=== PATIENT | female | born 1960 | race Caucasian/White ===

== ENCOUNTER 2017-01-23 16:50 | Emergency (ER) | payer MEDICAID, OTHER ==
[2017-01-23 16:57] VITALS: BP 142/79; PULSE 85; O2SAT 95
--- NOTE | 2017-01-23 17:13 | ERPHSYRPT ---
- History of Present Illness Time Seen by Provider: 01/23/17 17:08 Source: patient Exam Limitations: no limitations Patient Subjective Stated Complaint: mouth blisters for 1 week Triage Nursing Assessment: mouth blisters for 1 week. states normally uses nystatin for this but still not helping for 2 days. blisteres noted to gum line. slight sore throat. Physician History: 56-year-old white female with history of congenital heart disease, high blood pressure, COPD rheumatoid arthritis, cardiomyopathy Arrives with complaints of sores in her mouth which are like blisters on her tongue and the lower lip symptoms for a week. She states she has tried using nystatin today without any relief. No fevers she has had a slight sore throat. No vomiting no diarrhea. Past medical history includes congenital heart disease high blood pressure COPD rheumatoid arthritis cardiomyopathy. Past surgical history includes cholecystectomy hysterectomy right hip surgery. Timing/Duration: week(s) (1 week) Severity: moderate Modifying Factors: Improves With: nothing Associated Symptoms: other (sores in her mouth and on her tongue), No nausea, No vomiting, No abdominal pain, No shortness of breath, No heartburn, No diaphoresis, No cough, No chills, No chest pain, No fever, No headaches, No loss of appetite, No malaise, No rash, No syncope, No seizure, No weakness Allergies/Adverse Reactions: amoxicillin trihydrate [From Augmentin] Allergy (Verified 01/23/17 16:57) Iodinated Contrast Media - Oral and [Iodinated Contrast Media - IV Dye] Allergy (Verified 01/23/17 16:57) Sulfa (Sulfonamide Antibiotics) Allergy (Verified 01/23/17 16:57) Home Medications: Albuterol 2.5 mg/3 ml Neb [Proventil 2.5 mg/3 ml Neb] 2.5 mg PO QID [History] Albuterol Sulfate [Proair Hfa] 8.5 gm PO QID 01/13/15 [History] Aspirin 81 gm Chew [Baby Aspirin 81 mg Chew] 162 mg PO DAILY 01/13/15 [ History] Atorvastatin Calcium [Lipitor] 20 mg PO BID 01/13/15 [History] Carvedilol [Coreg] 6.25 mg PO BID 01/13/15 [History] Famotidine [Pepcid] 40 mg PO DAILY 01/13/15 [History] Fluticasone/Salmeterol [Advair 250-50 Diskus] 1 ea IH BID 01/13/15 [History] Gemfibrozil [Lopid] 600 mg PO BID 01/13/15 [History] Lisinopril 5 mg [Zestril 5 MG] 5 mg PO BID 01/13/15 [History] Omeprazole [Prilosec] 40 mg PO DAILY 01/13/15 [History] Zafirlukast [Accolate] 20 mg PO BID 01/13/15 [History] Meloxicam 7.5 mg [Mobic 7.5 MG] 7.5 mg PO DAILY 09/18/16 [History] Hx Tetanus, Diphtheria Vaccination/Date Given: Yes Hx Influenza Vaccination/Date Given: No Hx Pneumococcal Vaccination/Date Given: Yes Immunizations Up to Date: Yes - Review of Systems Constitutional: No Fever, No Chills Eyes: No Symptoms Ears, Nose, & Throat: Mouth Pain, Throat Pain (slight sore throat), Other ( sores in her mouth and on her tongue), No Ear Pain, No Ear Discharge, No Hearing Changes, No Tinnitus, No Nose Pain, No Nose Congestion, No Epistaxis, No Mouth Swelling, No Loose Teeth, No Throat Swelling, No Hoarse, No Painful Swallowing, No Snoring, No Stridor Respiratory: No Cough, No Dyspnea Cardiac: No Chest Pain, No Edema, No Syncope Abdominal/Gastrointestinal: No Abdominal Pain, No Nausea, No Vomiting, No Diarrhea Genitourinary Symptoms: No Dysuria Musculoskeletal: No Back Pain, No Neck Pain Skin: No Rash Neurological: No Dizziness, No Focal Weakness, No Sensory Changes Psychological: No Symptoms Endocrine: No Symptoms All Other Systems: Reviewed and Negative - Past Medical History Pertinent Past Medical History: Yes Cardiac History: Congenital Heart Disease, Hypertension, Other Respiratory History: COPD Musculoskeletal History: Rheumatoid Arthritis Other Medical History: RHUMATOID , CARDIOMYOPATHY - Past Surgical History Past Surgical History: Yes Gastrointestinal: Cholecystectomy Musculoskeletal: Orthopedic Surgery Female Surgical History: Section, Hysterectomy Other Surgical History: R HIP SURG - Social History Smoking Status: Never smoker Exposure to second hand smoke: No Drug Use: none Patient Lives Alone: Yes - Nursing Vital Signs Nursing Vital Signs: Initial Vital Signs Temperature 98.1 F Temperature Source Oral Pulse Rate 85 Respiratory Rate 18 Blood Pressure [Right Arm] 142/79 Pain Intensity 7 - Physical Exam General Appearance: no apparent distress, alert Eye Exam: PERRL/EOMI, eyes nml inspection Ears, Nose, Throat Exam: TMs normal, pharynx normal, moist mucous membranes, other (small abscess ulcers on the buccal mucosa and tongue) Neck Exam: normal inspection, non-tender, supple, full range of motion Respiratory Exam: normal breath sounds, lungs clear, No respiratory distress Cardiovascular Exam: regular rate/rhythm, normal heart sounds, normal peripheral pulses Gastrointestinal/Abdomen Exam: soft, normal bowel sounds, No tenderness, No mass Back Exam: normal inspection, normal range of motion, No CVA tenderness, No vertebral tenderness Extremity Exam: normal inspection, normal range of motion, pelvis stable Neurologic Exam: alert, oriented x 3, cooperative, normal mood/affect, nml cerebellar function, nml station & gait, sensation nml, No motor deficits Skin Exam: normal color, warm, dry, No rash Lymphatic Exam: No adenopathy SpO2 Interpretation: normal (95%) SpO2: 95 Oxygen Delivery: Room Air - Course Nursing assessment & vital signs reviewed: Yes - Progress Progress: improved Progress Note: 01/23/17 17:11 56-year-old white female with sores in her mouth and tongue appear to be aphthous ulcers, will place on Rachel[employer] Magic mouthwash for a week - Departure Time of Disposition: 17:12 Departure Disposition: Home Clinical Impression: Oral ulcer Condition: Fair Critical Care Time: No Referrals: KERWIN KWOK [Primary Care Provider] - Additional Instructions: Return home. Rachel[employer] Magic mouthwash 1 teaspoon swish and spit 3 times a day for 7 days. Tylenol every 4 hours as needed for pain. Follow-up with your family doctor if symptoms no better in 48 hours worse or persist longer than one week. Return for acute distress or for severe symptoms.
== END 2017-01-23 17:10 | disposition home or self-care (01) ==
LOC: ED 16:50
DX: K12.1 Other forms of stomatitis (principal)
CPT/HCPCS: 99281; 99283

== ENCOUNTER 2017-11-16 12:31 | Emergency (ER) | payer OTHER ==
[2017-11-16] MEDS ORDERED: DUONEB 0.5-3 MG/3 ml Neb IH ONE ×2 (12:54→13:01)
--- NOTE | 2017-11-16 12:58 | ERPHSYRPT ---
- History of Present Illness Time Seen by Provider: 11/16/17 12:38 Source: patient Patient Subjective Stated Complaint: here for a cough, sorethroat, nonproductive. no fever Triage Nursing Assessment: pt alert, walked in, resp easy. skin w/d/p Physician History: CC: cough Hx: 57 y/o patient of Dr Rosa Kwok with hx of lung cancer resection, COPD. She has cough and sore throat since last night. No fever. Some chills. No CALLAWAY or myalgias. No V/D. Recently returned from travel trip to [place]. Allergies/Adverse Reactions: amoxicillin trihydrate [From Augmentin] Allergy (Verified 11/16/17 12:42) Iodinated Contrast- Oral and IV Dye [Iodinated Contrast Media - IV Dye] Allergy (Verified 11/16/17 12:42) Sulfa (Sulfonamide Antibiotics) Allergy (Verified 11/16/17 12:42) Home Medications: Albuterol 2.5 mg/3 ml Neb [Proventil 2.5 mg/3 ml Neb] 2.5 mg PO QID [History] Albuterol Sulfate [Proair Hfa] 8.5 gm PO QID 01/13/15 [History] Aspirin 81 gm Chew [Baby Aspirin 81 mg Chew] 162 mg PO DAILY 01/13/15 [ History] Atorvastatin Calcium [Lipitor] 20 mg PO BID 01/13/15 [History] Carvedilol [Coreg] 6.25 mg PO BID 01/13/15 [History] Famotidine [Pepcid] 40 mg PO DAILY 01/13/15 [History] Fluticasone/Salmeterol [Advair 250-50 Diskus] 1 ea IH BID 01/13/15 [History] Gemfibrozil [Lopid] 600 mg PO BID 01/13/15 [History] Lisinopril 5 mg [Zestril 5 MG] 5 mg PO BID 01/13/15 [History] Omeprazole [Prilosec] 40 mg PO DAILY 01/13/15 [History] Zafirlukast [Accolate] 20 mg PO BID 01/13/15 [History] Meloxicam 7.5 mg [Mobic 7.5 MG] 7.5 mg PO DAILY 09/18/16 [History] Gabapentin 800 mg TID 11/16/17 [History] Hx Tetanus, Diphtheria Vaccination/Date Given: Yes Hx Influenza Vaccination/Date Given: Yes Hx Pneumococcal Vaccination/Date Given: (unsure) Immunizations Up to Date: Yes - Review of Systems Constitutional: Chills, Malaise, No Fever Eyes: No Symptoms Ears, Nose, & Throat: Throat Pain Respiratory: Cough, No Dyspnea Abdominal/Gastrointestinal: No Vomiting, No Diarrhea Musculoskeletal: No Myalgias Skin: No Rash Neurological: No Headache All Other Systems: Reviewed and Negative - Past Medical History Pertinent Past Medical History: Yes Cardiac History: Congenital Heart Disease, Hypertension, Other Respiratory History: COPD, Lung Cancer Musculoskeletal History: Rheumatoid Arthritis Other Medical History: Rheumatoid Arthritis. COPD. Cardiomyopathy - Past Surgical History Past Surgical History: Yes Respiratory: Lobectomy Gastrointestinal: Cholecystectomy Musculoskeletal: Orthopedic Surgery Female Surgical History: Section, Hysterectomy Other Surgical History: R HIP SURG - Social History Smoking Status: Former smoker Exposure to second hand smoke: No Drug Use: none Patient Lives Alone: No - Female History Hx Last Menstrual Period: post - Nursing Vital Signs Nursing Vital Signs: Initial Vital Signs Temperature 99.1 F 11/16/17 12:36 Pulse Rate 106 H 11/16/17 12:36 Respiratory Rate 18 11/16/17 12:36 Blood Pressure 136/83 11/16/17 12:36 O2 Sat by Pulse Oximetry 98 11/16/17 12:36 Pain Scale Pain Intensity 4 - Physical Exam General Appearance: alert Eye Exam: PERRL/EOMI Ears, Nose, Throat Exam: moist mucous membranes Neck Exam: non-tender, supple Respiratory Exam: diminished breath sounds, other (+ cough) Cardiovascular Exam: regular rate/rhythm Gastrointestinal/Abdomen Exam: soft, No tenderness, No distention Extremity Exam: normal inspection, normal range of motion, No calf tenderness Neurologic Exam: alert, oriented x 3, cooperative, sensation nml, No motor deficits Skin Exam: warm, dry, No rash SpO2 Interpretation: normal SpO2: 98 Oxygen Delivery: Room Air - Course Nursing assessment & vital signs reviewed: Yes - Radiology Exams cxr X-ray Interpretation: Reviewed by me, No Pneumonia Ordered Tests: Active Orders 24 hr Category Date Time Status CHEST 2 VIEWS (PA AND LAT) Stat Exams 11/16/17 12:54 Ordered Respiratory Nebulizer STAT RT 11/16/17 12:54 Completed Medication Summary Discontinued Medications Generic Name Dose Route Start Last Admin Trade Name Jaime PRN Reason Stop Dose Admin Albuterol/Ipratropium 3 ml 11/16/17 12:54 11/16/17 13:00 Duoneb 0.5-3 Mg/3 Ml Neb IH 11/16/17 12:55 3 ml STAT ONE Administration Albuterol/Ipratropium Confirm 11/16/17 13:01 Duoneb 0.5-3 Mg/3 Ml Neb Administered 11/16/17 13:02 Dose 3 ml IH .STK-MED ONE - Progress Progress Note: 11/16/17 13:48 No wheezing after neb. Rx doxycycline and prednisone. Counseled pt/family regarding: diagnosis, need for follow-up, rad results - Departure Time of Disposition: 13:48 Departure Disposition: Home Clinical Impression: Acute bronchitis Condition: Fair Critical Care Time: No Referrals: KERWIN KWOK [Primary Care Provider] - Instructions: Cough, Adult (DC), Acute Bronchitis, Adult (DC) Additional Instructions: UPPER RESPIRATORY INFECTIONS 1. The signs and symptoms of a cold may last up to 10 days. These illnesses are due to viruses which are not treatable with antibiotics. 2. The following suggestions can aid in recovery and to minimize symptoms: A. Increase fluid intake. B. Acetaminophen or Ibuprofen as directed. C. Avoid smoking environments as this will increase the risk of developing pneumonia. D. For children, may use a cool mist vaporizer in the child's room. 3. Contact your Family Physician if you note: A. Persisten fever >103 for more than 3 days B. Breathing difficulty C. Productive cough of yellow/green sputum D. Illness greater than 7 days E. Persistent vomiting F. Stiff neck Rx prednisone. Rx doxycycline. Continue nebs every 4 hours. Prescriptions: Doxycycline Hyclate 100 mg [Vibramycin 100 MG] 100 mg PO BID #20 tab Prednisone 20 mg [Deltasone 20 mg] 2 tab PO DAILY #10 tablet
[2017-11-16 13:59] VITALS: BP 90/73; PULSE 100; O2SAT 97
--- NOTE | 2017-11-16 20:48 | XRAY ---
Indication: Cough. Comparison: January 12, 2014. PA/lateral chest remains clear. New right upper lung suture material. Heart and mediastinal structures within normal limits. New right-sided Port-A-Cath. Bony thorax intact with mild degenerative changes. Impression: Nonacute chest with new postsurgical changes.
== END 2017-11-16 14:00 | disposition home or self-care (01) ==
LOC: ED 12:31
DX: J20.9 Acute bronchitis, unspecified (principal)
CPT/HCPCS: 71046; 94150; 94640; 99283; A9270-GY

== ENCOUNTER 2019-03-04 14:57 | Emergency (ER) | payer OTHER ==
--- NOTE | 2019-03-04 15:10 | ERPHSYRPT ---
- History of Present Illness Time Seen by Provider: 03/04/19 15:10 Source: patient, family Exam Limitations: no limitations Physician History: 58 y/o white female with chronic h/o peripheral neuropathy bilat lower ext. pt is on gabapentin chronically. pt having a mild skin rash on left ankle and a different type of left ankle pain. pt unsure if she has a h/o dvt in past. pt not on any anticoag tx. sx for 2 days. not better. Timing/Duration: day(s) (2) Severity: mild Modifying Factors: Improves With: movement Associated Symptoms: denies symptoms Allergies/Adverse Reactions: amoxicillin trihydrate [From Augmentin] Allergy (Verified 11/16/17 12:42) Iodinated Contrast- Oral and IV Dye [Iodinated Contrast Media - IV Dye] Allergy (Verified 11/16/17 12:42) Sulfa (Sulfonamide Antibiotics) Allergy (Verified 11/16/17 12:42) Home Medications: Albuterol 2.5 mg/3 ml Neb [Proventil 2.5 mg/3 ml Neb] 2.5 mg PO QID [History] Albuterol Sulfate [Proair Hfa] 8.5 gm PO QID 01/13/15 [History] Aspirin 81 gm Chew [Baby Aspirin 81 mg Chew] 162 mg PO DAILY 01/13/15 [ History] Atorvastatin Calcium [Lipitor] 20 mg PO BID 01/13/15 [History] Carvedilol [Coreg] 6.25 mg PO BID 01/13/15 [History] Famotidine [Pepcid] 40 mg PO DAILY 01/13/15 [History] Fluticasone/Salmeterol [Advair 250-50 Diskus] 1 ea IH BID 01/13/15 [History] Gemfibrozil [Lopid] 600 mg PO BID 01/13/15 [History] Lisinopril 5 mg [Zestril 5 MG] 5 mg PO BID 01/13/15 [History] Omeprazole [Prilosec] 40 mg PO DAILY 01/13/15 [History] Zafirlukast [Accolate] 20 mg PO BID 01/13/15 [History] Meloxicam 7.5 mg [Mobic 7.5 MG] 7.5 mg PO DAILY 09/18/16 [History] Gabapentin 800 mg TID 11/16/17 [History] Hx Tetanus, Diphtheria Vaccination/Date Given: Yes Hx Influenza Vaccination/Date Given: Yes Hx Pneumococcal Vaccination/Date Given: (unsure) - Review of Systems Constitutional: No Symptoms Eyes: No Symptoms Ears, Nose, & Throat: No Symptoms Respiratory: No Symptoms Cardiac: No Symptoms Abdominal/Gastrointestinal: No Symptoms Genitourinary Symptoms: No Symptoms Musculoskeletal: Joint Pain (left ankle pain) Skin: Rash (mild rash left ankle) Neurological: No Symptoms Psychological: No Symptoms Endocrine: No Symptoms Hematologic/Lymphatic: No Symptoms Immunological/Allergic: No Symptoms All Other Systems: Reviewed and Negative - Past Medical History Pertinent Past Medical History: Yes Neurological History: No Pertinent History ENT History: No Pertinent History Cardiac History: Congenital Heart Disease, Hypertension, Other Respiratory History: COPD, Lung Cancer Endocrine Medical History: No Pertinent History Musculoskeletal History: Rheumatoid Arthritis GI Medical History: No Pertinent History History: No Pertinent History Psycho-Social History: No Pertinent History Female Reproductive Disorders: No Pertinent History Other Medical History: Rheumatoid Arthritis. COPD. Cardiomyopathy - Past Surgical History Past Surgical History: Yes Neuro Surgical History: No Pertinent History Cardiac: No Pertinent History Respiratory: Lobectomy Gastrointestinal: Cholecystectomy Musculoskeletal: Orthopedic Surgery Female Surgical History: Section, Hysterectomy Other Surgical History: R HIP SURG - Social History Smoking Status: Former smoker Exposure to second hand smoke: No Drug Use: none Patient Lives Alone: No - Nursing Vital Signs Nursing Vital Signs: Initial Vital Signs Temperature 97.8 F 03/04/19 15:56 Pulse Rate 95 H 03/04/19 15:56 Respiratory Rate 18 03/04/19 15:56 Blood Pressure 105/64 03/04/19 15:56 O2 Sat by Pulse Oximetry 97 03/04/19 15:56 Pain Scale Pain Intensity 9 - Physical Exam General Appearance: no apparent distress, alert, anxiety Eye Exam: PERRL/EOMI, eyes nml inspection Ears, Nose, Throat Exam: normal ENT inspection, moist mucous membranes Neck Exam: normal inspection, non-tender, supple, full range of motion Respiratory Exam: No chest tenderness, No respiratory distress Cardiovascular Exam: regular rate/rhythm, normal heart sounds, normal peripheral pulses Gastrointestinal/Abdomen Exam: soft, normal bowel sounds, No tenderness Pelvic Exam: not done Rectal Exam: not done Back Exam: normal inspection, normal range of motion, No CVA tenderness, No vertebral tenderness Extremity Exam: normal range of motion, swelling (mild left ankle), tenderness ( mild left ankle), No pelvis stable Neurologic Exam: alert, oriented x 3, cooperative, brick carrier II-XII 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 tested Skin Exam: normal color, warm, dry Lymphatic Exam: No adenopathy SpO2 Interpretation: normal O2 Delivery: Room Air Ordered Tests: Active Orders 24 hr Category Date Time Status VENOUS UNILAT/LIMITED EXTREMIT [US] Stat Exams 03/04/19 16:15 Completed Medication Summary Discontinued Medications Generic Name Dose Route Start Last Admin Trade Name Freq PRN Reason Stop Dose Admin Oxycodone/Acetaminophen 1 tab 03/04/19 16:54 Percocet Tablet 5/325mg PO 03/04/19 16:55 STAT STA Prednisone 10 mg 03/04/19 16:55 Deltasone 10 Mg PO 03/04/19 16:56 STAT ONE - Progress Progress: unchanged Progress Note: 03/04/19 17:24 left lower ext venous doppler-negative. Counseled pt/family regarding: diagnosis, need for follow-up, rad results - Departure Departure Disposition: Home Clinical Impression: Left ankle pain Condition: Stable Critical Care Time: No Referrals: KERWIN KWOK [Primary Care Provider] - Additional Instructions: follow up tomorrow with your primary doctor for further management Prescriptions: Hydrocodone/APAP 5-325 Tab^^^ [Outing 5-325 Tablet^^^] 1 tab PO Q12H PRN PRN #6 tablet MDD 2 PRN Reason: Pain Prednisone 10 mg [Deltasone 10 mg] 10 mg PO BID #6 tablet
[2019-03-04 16:08] VITALS: O2SAT 97
[2019-03-04] MEDS ORDERED: PERCOCET TABLET 5/325MG PO STA (16:54)
[2019-03-04] MEDS ORDERED: DELTASONE 10 MG PO ONE (16:55)
--- NOTE | 2019-03-04 17:06 | XRAY ---
Indication: Lower extremity pain. Two-dimensional sonogram and color Doppler imaging of the major venous vessels of the left leg was performed. Comparison: None No thrombus seen in the examined deep venous vessels of the left leg including greater saphenous vein. Veins demonstrate normal compressibility. Venous waveforms are normal with and without augmentation. Below the knee, there is mild subcutaneous venous varicosities. Impression: 1. Left leg negative for DVT. 2. Mild lower leg venous varicosities.
[2019-03-04] MEDS ORDERED: PERCOCET TABLET 5/325MG ONE (17:28)
[2019-03-04] MEDS ORDERED: DELTASONE 20 MG ONE (17:28)
[2019-03-04 17:47] VITALS: BP 99/55; PULSE 74
== END 2019-03-04 17:47 | disposition home or self-care (01) ==
LOC: ED 14:57
DX: M25.572 Pain in left ankle and joints of left foot (principal); R21 Rash and other nonspecific skin eruption; Z79.899 Other long term (current) drug therapy; I10 Essential (primary) hypertension; J44.1 Chronic obstructive pulmonary disease with (acute) exacerbation
CPT/HCPCS: 93971; 99283; A9270-GY

== ENCOUNTER 2019-06-12 15:08 | Emergency (ER) | payer OTHER ==
--- NOTE | 2019-06-12 15:10 | ERPHSYRPT ---
- History of Present Illness Time Seen by Provider: 06/12/19 15:10 Source: patient Exam Limitations: no limitations Physician History: 58 y/o white female presents with 2 day h/o flank pain. pt has chronic low back pain. however, today she was having urinary frequency and dysuria. denies abd pain and denies fever. Timing/Duration: today Severity: mild Associated Symptoms: No nausea, No vomiting, No abdominal pain, No fever Allergies/Adverse Reactions: amoxicillin trihydrate [From Augmentin] Allergy (Verified 06/12/19 15:27) Iodinated Contrast Media [Iodinated Contrast Media - IV Dye] Allergy (Verified 06/12/19 15:27) Sulfa (Sulfonamide Antibiotics) Allergy (Verified 06/12/19 15:27) Home Medications: Albuterol 2.5 mg/3 ml Neb [Proventil 2.5 mg/3 ml Neb] 2.5 mg PO QID [History] Albuterol Sulfate [Proair Hfa] 8.5 gm PO QID 01/13/15 [History] Aspirin 81 gm Chew [Baby Aspirin 81 mg Chew] 162 mg PO DAILY 01/13/15 [ History] Atorvastatin Calcium [Lipitor] 20 mg PO BID 01/13/15 [History] Carvedilol [Coreg] 6.25 mg PO BID 01/13/15 [History] Famotidine [Pepcid] 40 mg PO DAILY 01/13/15 [History] Fluticasone/Salmeterol [Advair 250-50 Diskus] 1 ea IH BID 01/13/15 [History] Gemfibrozil [Lopid] 600 mg PO BID 01/13/15 [History] Lisinopril 5 mg [Zestril 5 MG] 5 mg PO BID 01/13/15 [History] Omeprazole [Prilosec] 40 mg PO DAILY 01/13/15 [History] Zafirlukast [Accolate] 20 mg PO BID 01/13/15 [History] Cyclobenzaprine HCl 10 mg [Cyclobenzaprine 10 MG] 10 mg PO TID 06/12/19 [ History] Etodolac 200 mg PO TID 06/12/19 [History] Gabapentin [Gralise] 2,400 mg PO PC 06/12/19 [History] Pramipexole Di-HCl [Pramipexole ER] 1.5 mg PO DAILY 06/12/19 [History] clonazePAM [Clonazepam] 4 mg PO HS 06/12/19 [History] Hx Tetanus, Diphtheria Vaccination/Date Given: Yes Hx Influenza Vaccination/Date Given: Yes Hx Pneumococcal Vaccination/Date Given: (unsure) - Review of Systems Constitutional: No Symptoms Eyes: No Symptoms Ears, Nose, & Throat: No Symptoms Respiratory: No Symptoms Cardiac: No Symptoms Abdominal/Gastrointestinal: No Symptoms Genitourinary Symptoms: Dysuria, Frequency, Flank Pain Musculoskeletal: No Symptoms Neurological: No Symptoms Psychological: No Symptoms Endocrine: No Symptoms Hematologic/Lymphatic: No Symptoms Immunological/Allergic: No Symptoms All Other Systems: Reviewed and Negative - Past Medical History Pertinent Past Medical History: Yes Neurological History: No Pertinent History ENT History: No Pertinent History Cardiac History: Congenital Heart Disease, Hypertension, Other Respiratory History: COPD, Lung Cancer Endocrine Medical History: No Pertinent History Musculoskeletal History: Rheumatoid Arthritis GI Medical History: No Pertinent History History: No Pertinent History Psycho-Social History: No Pertinent History Female Reproductive Disorders: No Pertinent History Other Medical History: Rheumatoid Arthritis. COPD. Cardiomyopathy - Past Surgical History Past Surgical History: Yes Neuro Surgical History: No Pertinent History Cardiac: No Pertinent History Respiratory: Lobectomy Gastrointestinal: Cholecystectomy Musculoskeletal: Orthopedic Surgery Female Surgical History: Section, Hysterectomy Other Surgical History: R HIP SURG - Social History Smoking Status: Former smoker Exposure to second hand smoke: No Drug Use: none Patient Lives Alone: No - Nursing Vital Signs Nursing Vital Signs: Initial Vital Signs Temperature 99.0 F 06/12/19 15:11 Pulse Rate 102 H 06/12/19 15:11 Blood Pressure 119/90 06/12/19 15:11 O2 Sat by Pulse Oximetry 95 06/12/19 15:11 Pain Scale Pain Intensity 10 - Physical Exam General Appearance: no apparent distress, alert, anxiety Eye Exam: PERRL/EOMI, eyes nml inspection Ears, Nose, Throat Exam: normal ENT inspection, moist mucous membranes Neck Exam: normal inspection, non-tender, supple, full range of motion Respiratory Exam: normal breath sounds, lungs clear, airway intact, No chest tenderness, No respiratory distress Cardiovascular Exam: regular rate/rhythm, normal heart sounds, normal peripheral pulses Gastrointestinal/Abdomen Exam: soft, normal bowel sounds, No tenderness Pelvic Exam: not done Rectal Exam: not done Back Exam: normal inspection, normal range of motion, No CVA tenderness, No vertebral tenderness Extremity Exam: normal inspection, normal range of motion, pelvis stable Neurologic Exam: alert, oriented x 3, cooperative, 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 tested, normal mood/affect, nml cerebellar function Skin Exam: normal color, warm, dry Lymphatic Exam: No adenopathy SpO2 Interpretation: normal O2 Delivery: Room Air - Course Nursing assessment & vital signs reviewed: Yes Ordered Tests: Active Orders 24 hr Category Date Time Status CULTURE,URINE Stat Lab 06/12/19 15:26 Received UA W/RFX UR CULTURE Stat Lab 06/12/19 15:26 Completed Lab/Rad Data: Laboratory Results 06/12/19 Range/Units 15:26 Urine Color YELLOW (YELLOW) Urine Appearance CLOUDY (CLEAR) Urine pH 5.0 (5-6) Ur Specific Dalton 1.027 (1.005-1.025) Urine Protein 100 (Negative) Urine Ketones NEGATIVE (NEGATIVE) Urine Blood LARGE (0-5) Devante/ul Urine Nitrite NEGATIVE (NEGATIVE) Urine Bilirubin NEGATIVE (NEGATIVE) Urine Urobilinogen NEGATIVE (0-1) mg/dL Ur Leukocyte Esterase MODERATE (NEGATIVE) Urine WBC (Auto) >100 (0-5) /HPF Urine RBC (Auto) >101 (0-2) /HPF U Epithel Cells (Auto) NONE (FEW) /HPF Urine Bacteria (Auto) MANY (NEGATIVE) /HPF Urine Mucus (Auto) SLIGHT (NEGATIVE) /HPF Urine Culture Reflexed YES (NO) Urine Glucose NEGATIVE (NEGATIVE) mg/dL - Progress Progress: unchanged Counseled pt/family regarding: lab results, diagnosis, need for follow-up - Departure Departure Disposition: Home Clinical Impression: UTI (urinary tract infection) Condition: Stable Critical Care Time: No Referrals: KERWIN KWOK [Primary Care Provider] - Additional Instructions: drink plenty of fluids. follow up with primary doctor for further management Prescriptions: Ciprofloxacin [Cipro 500 MG] 500 mg PO BID #14 tablet Phenazopyridine HCl 200 mg [Pyridium 200 mg] 200 mg PO TID #6 tablet
[2019-06-12 16:35] LABS: Appearance CLOUDY (CLEAR); Bacteria MANY /HPF (NEGATIVE); Bilirubin NEGATIVE (NEGATIVE); Blood LARGE Ery/ul (0-5); Glucose NEGATIVE (NEGATIVE); Ketones NEGATIVE (NEGATIVE); Leukocyte Esterase MODERATE (NEGATIVE); Mucus SLIGHT /HPF (NEGATIVE); Nitrite NEGATIVE (NEGATIVE); Protein,Urine Dip 100 (Negative); Specific Gravity 1.027 (1.005-1.025); Urobilinogen NEGATIVE mg/dL (0-1); WBC >100 /HPF (0-5)
[2019-06-12 16:36] LABS: RBC >101 /HPF (0-2)
[2019-06-12] MEDS ORDERED: Levofloxacin 500 MG Tablet PO ONE (16:46)
[2019-06-12] MEDS ORDERED: Rocephin 1000 MG INJ IM ONE (16:46)
[2019-06-12] MEDS ORDERED: PYRIDIUM 200 MG PO ONE (16:49)
[2019-06-12] MEDS ORDERED: XYLOCAINE 1% HCL 20 ML MDV ONE (16:52)
[2019-06-12] MEDS ORDERED: PYRIDIUM 200 MG ONE (16:52)
[2019-06-12] MEDS ORDERED: Rocephin 1000 MG INJ ONE (16:52)
[2019-06-12] MEDS ORDERED: Levofloxacin 500 MG Tablet ONE (16:52)
[2019-06-12 16:55] VITALS: BP 114/74; PULSE 96; O2SAT 98
== END 2019-06-12 17:23 | disposition home or self-care (01) ==
LOC: ED 15:08
DX: N39.0 Urinary tract infection, site not specified (principal)
CPT/HCPCS: 81001; 87077; 87086; 87186; 96372; 99284; J0696; A9270-GY

== ENCOUNTER 2020-01-30 14:10 | Emergency (ER) | payer OTHER ==
--- NOTE | 2020-01-30 14:37 | ERPHSYRPT ---
- History of Present Illness Time Seen by Provider: 01/30/20 14:25 Source: patient Exam Limitations: no limitations Physician History: This is a 59-year-old white female who presents with 1 week history of left side intraoral ulcerations and burning discomfort. Patient has a history of oral candidiasis in the past. She attempted to use liquid nystatin but this burned tremendously. She denies exposure to any of her allergies. Patient denies fever she denies cough she denies nausea vomiting or diarrhea. She is noticing swelling in her left side of her lower lip. Patient has no difficulty swallowing and has no respiratory difficulties. Timing/Duration: gradual onset (Over 1 week) Severity: mild ENT Location: mouth Prearrival Treatment: over the counter meds Modifying Factors: Improves With: nothing Associated Symptoms: other (Mouth pain. Primarily left side) Allergies/Adverse Reactions: amoxicillin trihydrate [From Augmentin] Allergy (Verified 06/12/19 15:27) Iodinated Contrast Media [Iodinated Contrast Media - IV Dye] Allergy (Verified 06/12/19 15:27) Sulfa (Sulfonamide Antibiotics) Allergy (Verified 06/12/19 15:27) Home Medications: Albuterol 2.5 mg/3 ml Neb [Proventil 2.5 mg/3 ml Neb] 2.5 mg PO QID [History] Albuterol Sulfate [Proair Hfa] 8.5 gm PO QID 01/13/15 [History] Aspirin 81 gm Chew [Baby Aspirin 81 mg Chew] 162 mg PO DAILY 01/13/15 [ History] Atorvastatin Calcium [Lipitor] 20 mg PO BID 01/13/15 [History] Carvedilol [Coreg] 6.25 mg PO BID 01/13/15 [History] Famotidine [Pepcid] 40 mg PO DAILY 01/13/15 [History] Fluticasone/Salmeterol [Advair 250-50 Diskus] 1 ea IH BID 01/13/15 [History] Gemfibrozil [Lopid] 600 mg PO BID 01/13/15 [History] Lisinopril 5 mg [Zestril 5 MG] 5 mg PO BID 01/13/15 [History] Omeprazole [Prilosec] 40 mg PO DAILY 01/13/15 [History] Zafirlukast [Accolate] 20 mg PO BID 01/13/15 [History] Cyclobenzaprine HCl 10 mg [Cyclobenzaprine 10 MG] 10 mg PO TID 06/12/19 [ History] Etodolac 200 mg PO TID 06/12/19 [History] Gabapentin [Gralise] 2,400 mg PO PC 06/12/19 [History] Pramipexole Di-HCl [Pramipexole ER] 1.5 mg PO DAILY 06/12/19 [History] clonazePAM [Clonazepam] 4 mg PO HS 06/12/19 [History] Hx Tetanus, Diphtheria Vaccination/Date Given: Yes Hx Influenza Vaccination/Date Given: Yes Hx Pneumococcal Vaccination/Date Given: (unsure) Travel Risk - International Travel Have you traveled outside of the country in past 3 weeks: No Have you or anyone close to you been diagnosed with or: No Do your reside in a community with a known COVID-19 case?: Yes If Yes where:: [facility] - Review of Systems Constitutional: No Symptoms Eyes: No Symptoms Ears, Nose, & Throat: Mouth Pain Respiratory: No Symptoms Cardiac: No Symptoms Abdominal/Gastrointestinal: No Symptoms Genitourinary Symptoms: No Symptoms Musculoskeletal: No Symptoms Skin: No Symptoms Neurological: No Symptoms Psychological: No Symptoms Endocrine: No Symptoms Hematologic/Lymphatic: No Symptoms Immunological/Allergic: No Symptoms All Other Systems: Reviewed and Negative - Past Medical History Pertinent Past Medical History: Yes Neurological History: Peripheral Neuropathy ENT History: No Pertinent History Cardiac History: Congestive Heart Failure, High Cholesterol, Hypertension, Myocardial Infarction ([place]) Respiratory History: Lung Cancer Endocrine Medical History: No Pertinent History Musculoskeletal History: Rheumatoid Arthritis GI Medical History: No Pertinent History History: No Pertinent History Psycho-Social History: No Pertinent History Female Reproductive Disorders: No Pertinent History Other Medical History: Cardiomyopathy, R hip fx 2004, recent pelvic fx - Past Surgical History Past Surgical History: Yes Neuro Surgical History: No Pertinent History Cardiac: No Pertinent History Respiratory: Lobectomy Gastrointestinal: Cholecystectomy Musculoskeletal: Orthopedic Surgery Female Surgical History: Section, Hysterectomy Other Surgical History: R HIP SURG - Social History Smoking Status: Former smoker Exposure to second hand smoke: No Drug Use: none Patient Lives Alone: No - Physical Exam General Appearance: no apparent distress, alert, anxiety Eye Exam: bilateral eye: normal inspection, PERRL, EOMI Ear Exam: bilateral ear: auricle normal Nasal Exam: normal inspection Throat Exam: pharynx normal, moist mucus membranes (Mild ulcerations left buccal mucosa. There is mild swelling in the left side of her upper and lower lips.), No dental tenderness, No excessive drooling Neck Exam: normal inspection, non-tender, supple, full range of motion Cardiovascular/Respiratory Exam: chest non-tender, normal breath sounds, regular rate/rhythm, no respiratory distress Abdominal Exam: non-tender Neurologic Exam: alert, oriented x 3, cooperative, rock singer II-XII nml as tested, normal mood/affect, nml cerebellar function, nml station & gait, sensation nml, No facial droop, No slurred speech, No aphasia Skin Exam: normal color, warm, dry SpO2 Interpretation: normal O2 Delivery: Room Air - Course Nursing assessment & vital signs reviewed: Yes - Progress Progress: unchanged Counseled pt/family regarding: diagnosis, need for follow-up, rad results - Departure Departure Disposition: Home Clinical Impression: Oral mucositis Condition: Stable Critical Care Time: No Referrals: KERWIN KWOK [Primary Care Provider] - Additional Instructions: Drink plenty of fluids. Use Benadryl elixir [id number] as discussed. Follow-up with your primary care physician for further management. Take the prescriptions as prescribed. Prescriptions: Fluconazole 100 mg [Diflucan 100 MG] 100 mg PO UD #1 tablet Lidocaine HCl Viscous [XYLOCAINE HCl Viscous *] 10 ml MM Q8H #1 bottle Prednisone 10 mg [Deltasone 10 mg] 10 mg PO TID #12 tablet
[2020-01-30] MEDS ORDERED: BENADRYL 12.5 MG/5 ML PO ONE (14:49)
[2020-01-30] MEDS ORDERED: XYLOCAINE HCl Viscous MM ONE (14:50)
[2020-01-30] MEDS ORDERED: DELTASONE 20 MG ONE (14:55)
[2020-01-30] MEDS ORDERED: BENADRYL 12.5 MG/5 ML ONE (14:55)
[2020-01-30] MEDS ORDERED: XYLOCAINE HCl Viscous ONE (14:56)
[2020-01-30 15:29] VITALS: BP 132/108; PULSE 74; O2SAT 98
[2020-01-31] MEDS ORDERED: DELTASONE 20 MG PO ONE (14:48)
[2020-01-31] MEDS ORDERED: Diflucan 100 MG PO ONE (14:49)
== END 2020-01-30 15:25 | disposition home or self-care (01) ==
LOC: ED 14:10
DX: K12.30 Oral mucositis (ulcerative), unspecified (principal); I50.9 Heart failure, unspecified; E78.00 Pure hypercholesterolemia, unspecified; I10 Essential (primary) hypertension; I25.2 Old myocardial infarction; Z85.118 Personal history of other malignant neoplasm of bronchus and lung; M06.9 Rheumatoid arthritis, unspecified; Z79.899 Other long term (current) drug therapy
CPT/HCPCS: 99283; A9270-GY

== ENCOUNTER 2020-05-27 14:59 | Emergency (ER) | payer OTHER ==
--- NOTE | 2020-05-27 15:33 | ERPHSYRPT ---
- History of Present Illness Time Seen by Provider: 05/27/20 15:15 Source: patient Exam Limitations: no limitations Patient Subjective Stated Complaint: pt here for pain, swellilng and redness to lower right leg for a week now Triage Nursing Assessment: has face mask in place ,pt alert, resp easy, skin w/d/p.walked in with cane. pt has redness from calf to toes, slight swelling Physician History: Is a 67-year-old white female who has a history of CHF, peripheral neuropathy, hypertension, elevated cholesterol and myocardial infarction and presents with proximally less than 1 week history of, in her mind, redness of bilateral lower extremities from below the knees to the feet. Patient has a history of recurrent cellulitis. She feels that this is what this is. She is had no fever. Patient is not diabetic. Timing/Duration: day(s) (4 to 5 days) Quality: burning Severity: mild Location: extremities (Bilateral lower extremities below the knee) Possible Causes: no cause identified Allergies/Adverse Reactions: amoxicillin trihydrate [From Augmentin] Allergy (Verified 05/27/20 15:10) Iodinated Contrast Media [Iodinated Contrast Media - IV Dye] Allergy (Verified 05/27/20 15:10) Sulfa (Sulfonamide Antibiotics) Allergy (Verified 05/27/20 15:10) Home Medications: Albuterol 2.5 mg/3 ml Neb [Proventil 2.5 mg/3 ml Neb] 2.5 mg PO QID 01/13/15 [History] Albuterol Sulfate [Proair Hfa] 8.5 gm PO QID 01/13/15 [History] Aspirin 81 gm Chew [Baby Aspirin 81 mg Chew] 162 mg PO DAILY 01/13/15 [History] Atorvastatin Calcium [Lipitor] 20 mg PO BID 01/13/15 [History] Carvedilol [Coreg] 6.25 mg PO BID 01/13/15 [History] Famotidine [Pepcid] 40 mg PO DAILY 01/13/15 [History] Fluticasone/Salmeterol [Advair 250-50 Diskus] 1 ea IH BID 01/13/15 [History] Lisinopril 5 mg [Zestril 5 MG] 5 mg PO BID 01/13/15 [History] Omeprazole [Prilosec] 40 mg PO DAILY 01/13/15 [History] Zafirlukast [Accolate] 20 mg PO BID 01/13/15 [History] Cyclobenzaprine HCl 10 mg [Cyclobenzaprine 10 MG] 10 mg PO TID 06/12/19 [History] Etodolac 200 mg PO TID 06/12/19 [History] Gabapentin [Gralise] 2,400 mg PO PC 06/12/19 [History] Pramipexole Di-HCl [Pramipexole ER] 1.5 mg PO DAILY 06/12/19 [History] clonazePAM [Clonazepam] 4 mg PO HS 06/12/19 [History] Duloxetine HCl 1 ea DAILY 05/27/20 [History] Hx Tetanus, Diphtheria Vaccination/Date Given: Yes Hx Influenza Vaccination/Date Given: Yes Hx Pneumococcal Vaccination/Date Given: Yes Immunizations Up to Date: Yes Travel Risk - International Travel Have you traveled outside of the country in past 3 weeks: No - Coronavirus Screening Are you exhibiting any of the following symptoms?: No Close contact with a COVID-19 positive Pt in past 14-21 Days: No - Review of Systems Constitutional: No Symptoms Eyes: No Symptoms Ears, Nose, & Throat: No Symptoms Respiratory: No Symptoms Cardiac: No Symptoms Abdominal/Gastrointestinal: No Symptoms Genitourinary Symptoms: No Symptoms Musculoskeletal: No Symptoms Skin: Cellulitis Neurological: No Symptoms Psychological: No Symptoms Endocrine: No Symptoms Hematologic/Lymphatic: No Symptoms Immunological/Allergic: No Symptoms All Other Systems: Reviewed and Negative - Past Medical History Pertinent Past Medical History: Yes Neurological History: Peripheral Neuropathy ENT History: No Pertinent History Cardiac History: Angina, Congestive Heart Failure, High Cholesterol, Hypertension, Myocardial Infarction ([place]) Respiratory History: Asthma, Bronchitis, COPD, Lung Cancer Endocrine Medical History: No Pertinent History Musculoskeletal History: Arthritis, Rheumatoid Arthritis GI Medical History: No Pertinent History History: No Pertinent History Psycho-Social History: No Pertinent History Female Reproductive Disorders: No Pertinent History Other Medical History: Cardiomyopathy, R hip fx 2003, recent pelvic fx - Past Surgical History Past Surgical History: Yes Neuro Surgical History: No Pertinent History Cardiac: No Pertinent History Respiratory: Lobectomy Gastrointestinal: Cholecystectomy Musculoskeletal: Orthopedic Surgery Female Surgical History: Section, Hysterectomy Other Surgical History: R HIP SURG - Social History Smoking Status: Former smoker Exposure to second hand smoke: No Drug Use: none Patient Lives Alone: No - Female History Hx Last Menstrual Period: psot Hx Now: No - Nursing Vital Signs Nursing Vital Signs: Initial Vital Signs Temperature 99.3 F 05/27/20 15:05 Pulse Rate 93 H 05/27/20 15:05 Respiratory Rate 16 05/27/20 15:05 Blood Pressure 151/103 05/27/20 15:05 O2 Sat by Pulse Oximetry 97 05/27/20 15:05 Pain Scale Pain Intensity 5 - Physical Exam General Appearance: no apparent distress, alert, anxiety Eye Exam: PERRL/EOMI, eyes nml inspection Ears, Nose, Throat Exam: normal ENT inspection, moist mucous membranes Neck Exam: normal inspection, non-tender, supple, full range of motion Respiratory Exam: airway intact, No chest tenderness, No respiratory distress Gastrointestinal/Abdomen Exam: No tenderness Pelvic Exam: not done Rectal Exam: not done Extremity Exam: normal range of motion, pelvis stable, other (Dry skin bilateral lower extremities from both above the knee to include bilateral feet there is possibly mild cellulitis present but more of a dermatitis and rash present below her knees bilaterally) Neurologic Exam: alert, oriented x 3, cooperative, 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 Kwok for persistent symptoms. Apply skin moisturizing cream/ointment to bilateral lower extremities at least 2 times a day as discussed. Take your medications as prescribed Prescriptions: Ciprofloxacin [Cipro 500 MG] 500 mg PO BID #10 tablet Prednisone 10 mg [Deltasone 10 mg] 10 mg PO TID #12 tablet
[2020-05-27 15:43] VITALS: BP 142/94; PULSE 88; O2SAT 96
== END 2020-05-27 15:42 | disposition home or self-care (01) ==
LOC: ED 14:59
DX: L85.3 Xerosis cutis (principal); L03.116 Cellulitis of left lower limb; L03.115 Cellulitis of right lower limb; G62.9 Polyneuropathy, unspecified; I10 Essential (primary) hypertension; I50.9 Heart failure, unspecified; Z79.899 Other long term (current) drug therapy; I25.2 Old myocardial infarction
CPT/HCPCS: 99283

== ENCOUNTER 2020-09-10 18:49 | Emergency (ER) | payer OTHER ==
[2020-09-10 19:02] VITALS: O2SAT 98
--- NOTE | 2020-09-10 19:18 | ERPHSYRPT ---
- History of Present Illness Time Seen by Provider: 09/10/20 19:16 Source: patient Exam Limitations: no limitations Patient Subjective Stated Complaint: Pt states "I was hurrying to the bathroom and i hit a metal cabinet with my right chest and now my ribs are really hurti ng." Triage Nursing Assessment: Pt presented alert and oriented X 3, skin pwd. Pt ambualtes with a cane. Pt able to speakin clear full sentences. Pt has half a lung on the right side. Physician History: Pt states "I was hurrying to the bathroom and i hit a metal cabinet with my right chest and now my ribs are really hurting." no heavy pressure type chest pain Timing/Duration: today Severity: mild Associated Symptoms: denies symptoms Allergies/Adverse Reactions: amoxicillin trihydrate [From Augmentin] Allergy (Verified 05/27/20 15:10) Iodinated Contrast Media [Iodinated Contrast Media - IV Dye] Allergy (Verified 05/27/20 15:10) Sulfa (Sulfonamide Antibiotics) Allergy (Verified 05/27/20 15:10) Home Medications: Albuterol 2.5 mg/3 ml Neb [Proventil 2.5 mg/3 ml Neb] 2.5 mg PO QID 01/13/15 [History] Albuterol Sulfate [Proair Hfa] 8.5 gm PO QID 01/13/15 [History] Aspirin 81 gm Chew [Baby Aspirin 81 mg Chew] 162 mg PO DAILY 01/13/15 [History] Atorvastatin Calcium [Lipitor] 20 mg PO BID 01/13/15 [History] Carvedilol [Coreg] 6.25 mg PO BID 01/13/15 [History] Famotidine [Pepcid] 40 mg PO DAILY 01/13/15 [History] Fluticasone/Salmeterol [Advair 250-50 Diskus] 1 ea IH BID 01/13/15 [History] Lisinopril 5 mg [Zestril 5 MG] 5 mg PO BID 01/13/15 [History] Omeprazole [Prilosec] 40 mg PO DAILY 01/13/15 [History] Zafirlukast [Accolate] 20 mg PO BID 01/13/15 [History] Cyclobenzaprine HCl 10 mg [Cyclobenzaprine 10 MG] 10 mg PO TID 06/12/19 [History] Etodolac 200 mg PO TID 06/12/19 [History] Gabapentin [Gralise] 2,400 mg PO PC 06/12/19 [History] Pramipexole Di-HCl [Pramipexole ER] 1.5 mg PO DAILY 06/12/19 [History] clonazePAM [Clonazepam] 4 mg PO HS 06/12/19 [History] Duloxetine HCl 1 ea DAILY 05/27/20 [History] Hx Tetanus, Diphtheria Vaccination/Date Given: No Hx Influenza Vaccination/Date Given: Yes Hx Pneumococcal Vaccination/Date Given: Yes Immunizations Up to Date: Yes Travel Risk - International Travel Have you traveled outside of the country in past 3 weeks: No - Coronavirus Screening Are you exhibiting any of the following symptoms?: No Close contact with a COVID-19 positive Pt in past 14-21 Days: No - Review of Systems Constitutional: No Fever, No Chills Eyes: No Symptoms Ears, Nose, & Throat: No Symptoms Respiratory: No Cough, No Dyspnea Cardiac: Chest Pain (rib cage pain on right side), No Edema, No Syncope Abdominal/Gastrointestinal: No Abdominal Pain, No Nausea, No Vomiting, No Diarrhea Genitourinary Symptoms: No Dysuria Musculoskeletal: No Back Pain, No Neck Pain Skin: No Rash Neurological: No Dizziness, No Focal Weakness, No Sensory Changes Psychological: No Symptoms Endocrine: No Symptoms All Other Systems: Reviewed and Negative - Past Medical History Pertinent Past Medical History: Yes Neurological History: Peripheral Neuropathy ENT History: No Pertinent History Cardiac History: Angina, Congestive Heart Failure, High Cholesterol, Hypertension, Myocardial Infarction ([place]) Respiratory History: Asthma, Bronchitis, COPD, Lung Cancer Endocrine Medical History: No Pertinent History Musculoskeletal History: Arthritis, Rheumatoid Arthritis GI Medical History: No Pertinent History History: No Pertinent History Psycho-Social History: No Pertinent History Female Reproductive Disorders: No Pertinent History Other Medical History: Cardiomyopathy, R hip fx 2003, recent pelvic fx - Past Surgical History Past Surgical History: Yes Neuro Surgical History: No Pertinent History Cardiac: No Pertinent History Respiratory: Lobectomy Gastrointestinal: Cholecystectomy Musculoskeletal: Orthopedic Surgery Female Surgical History: Section, Hysterectomy Other Surgical History: R HIP SURG - Social History Smoking Status: Former smoker Exposure to second hand smoke: No Drug Use: none Patient Lives Alone: Yes - Female History Hx Now: No - Nursing Vital Signs Nursing Vital Signs: Initial Vital Signs Temperature 97.8 F 09/10/20 18:54 Pulse Rate 98 H 09/10/20 18:54 Respiratory Rate 22 09/10/20 18:54 Blood Pressure 167/114 09/10/20 18:54 O2 Sat by Pulse Oximetry 98 09/10/20 18:54 Pain Scale Pain Intensity 8 - Physical Exam General Appearance: no apparent distress, alert Eye Exam: PERRL/EOMI, eyes nml inspection Ears, Nose, Throat Exam: normal ENT inspection, TMs normal, pharynx normal, moist mucous membranes Neck Exam: normal inspection, non-tender, supple, full range of motion Respiratory Exam: normal breath sounds, lungs clear, No respiratory distress Cardiovascular Exam: regular rate/rhythm, normal heart sounds, normal peripheral pulses Gastrointestinal/Abdomen Exam: soft, normal bowel sounds, No tenderness, No mass Back Exam: normal inspection, normal range of motion, No CVA tenderness, No vertebral tenderness Extremity Exam: normal inspection, normal range of motion, pelvis stable Neurologic Exam: alert, oriented x 3, cooperative, normal mood/affect, nml cerebellar function, nml station & gait, sensation nml, No motor deficits Skin Exam: normal color, warm, dry, No rash Lymphatic Exam: No adenopathy SpO2: 98 - Course Nursing assessment & vital signs reviewed: Yes - Radiology Exams Chest X-ray Interpretation: Reviewed by me, Negative, No Fracture, No Pneumonia Ordered Tests: Active Orders 24 hr Category Date Time Status CHEST 2 VIEWS (PA AND LAT) Stat Exams 09/10/20 19:12 Taken - Progress Progress: improved Counseled pt/family regarding: diagnosis, need for follow-up, rad results - Departure Departure Disposition: Home Clinical Impression: Rib pain on right side Condition: Stable Critical Care Time: No Referrals: KERWIN KWOK [Primary Care Provider] - Follow Up with PCP/3 days Instructions: Bruised Rib Additional Instructions: ELVA VANG was seen on 09/10/20 n the Emergency Room. At that time you were treated for an emergent condition, during your visit Laboratory, Radiology and/or other procedures may have been ordered. It is very important that you follow-up with your Primary Care Physician KERWIN KWOK within the next 24-48 hours to review your Emergency Room visit and the final results of testing that was ordered. Some test results such as Urine Cultures, Blood Cultures, and other cultures if ordered will not be finalized for 24-48 hours. If you do not have a Primary Care Provider please call the medical records department at [phone] ext [phone] to obtain a copy of your results or you may sign into our patient portal to obtain these results by visiting us @ [email or web address] [address] and completing the following steps: 1. Click on the Patient Portal link 2. Click the Patient Self Enrollment Link to complete the enrollment form and entering your 3. Once the enrollment form is completed you will receive an email with a temporary ID and password at the email address you provided. 4. Next choose a user name and password. Your user name must be at least 4 characters long and your password must be at least 4 characters long. 5. Choose a security question from the list and provide your answer to the question. If you already have signed into the Health Portal you may access your Health Care Information 22/04 by the following steps: 1. Login to our website @ [email or web address] [address] 2. Enter your original user name and password. FAQS The [facility] Health Portal is an online tool that contains your Lab Results, Radiology Reports, Visit History, Discharge Instructions and Health Summary Lab and Radiology Results will not be available for 72 hours on the portal. The Portal is a secure site, passwords are encryted and URLs are re-written so they cannot be copied and pasted. You and authorized family members are the only ones who can access your Portal. Also there is a timeout feature that protects your information if you leave the Portal page open. If you have technical difficulty please use the Contact Us link on the page this will allow you to submit any questions you have regarding the Portal or you may contact the Medical Record Department at [phone] ext [phone].
[2020-09-10 20:14] VITALS: BP 152/112; PULSE 94
--- NOTE | 2020-09-11 06:59 | XRAY ---
Indication: Right chest pain following injury. Comparison: November 16, 2017. PA/lateral chest now demonstrates minimal bilateral midlung and left base subsegmental atelectasis/scarring. Heart is now borderline enlarged again with right Port-A-Cath. Bony thorax intact again with mild degenerative changes and mild scoliosis. Impression: Nonacute chest with chronic features.
== END 2020-09-10 20:00 | disposition home or self-care (01) ==
LOC: ED 18:49
DX: R07.81 Pleurodynia (principal); J44.9 Chronic obstructive pulmonary disease, unspecified; Z85.118 Personal history of other malignant neoplasm of bronchus and lung; I25.2 Old myocardial infarction; Z87.891 Personal history of nicotine dependence
CPT/HCPCS: 71046; 99283

== ENCOUNTER 2021-02-07 17:10 | Emergency (ER) | payer OTHER ==
[2021-02-07] MEDS ORDERED: Reglan 10 MG/2 ML IV ONE (17:35)
[2021-02-07] MEDS ORDERED: BENADRYL 50 MG/ML IV ONE (17:35)
[2021-02-07] MEDS ORDERED: BENADRYL 50 MG/ML ONE (17:38)
[2021-02-07] MEDS ORDERED: Reglan 10 MG/2 ML ONE (17:38)
--- NOTE | 2021-02-07 17:39 | ERPHSYRPT ---
- History of Present Illness Time Seen by Provider: 02/07/21 17:12 Source: patient Exam Limitations: no limitations Patient Subjective Stated Complaint: Pt states "I have a blood clot in my left upper arm and I am on eliquis 5 in the morning and 5 at night and this afternoon around 3 pm I got this pain right above my right eye and it hurts really bad." Triage Nursing Assessment: Pt presented alert and oriented X3, skin pwd. Pt ambulates with an upright steady gait, able to speak in clear full sentences. Pt in no apparent respiratory distress. Physician History: 60 years old female with history of hypertension, hyperlipidemia, recent left arm DVT started on Eliquis 4 days ago presented in the ER with sudden onset right-sided headache above her right eye. Patient described it as "it is a terrible headache" 8/10 intensity, aggravated with light and opening eyes and partial relief with sitting in a dark calm room. Denies any numbness tingling or weakness. No difficulty speech. Denies any visual symptoms associated with it. Does not have any history of migraine. Denies any neck pain or stiffness. No nausea or vomiting associated with it. No chest pain palpitations or shortness of breath. Patient called her primary care and was recommended to be seen in the ER. Allergies/Adverse Reactions: amoxicillin trihydrate [From Augmentin] Allergy (Verified 05/27/20 15:10) Iodinated Contrast Media [Iodinated Contrast Media - IV Dye] Allergy (Verified 05/27/20 15:10) Sulfa (Sulfonamide Antibiotics) Allergy (Verified 05/27/20 15:10) Home Medications: Albuterol 2.5 mg/3 ml Neb [Proventil 2.5 mg/3 ml Neb] 2.5 mg PO QID 01/13/15 [History] Albuterol Sulfate [Proair Hfa] 8.5 gm PO QID 01/13/15 [History] Aspirin 81 gm Chew [Baby Aspirin 81 mg Chew] 162 mg PO DAILY 01/13/15 [History] Carvedilol [Coreg] 6.25 mg PO BID 01/13/15 [History] Famotidine [Pepcid] 40 mg PO DAILY 01/13/15 [History] Fluticasone/Salmeterol [Advair 250-50 Diskus] 1 ea IH BID 01/13/15 [History] Omeprazole [Prilosec] 40 mg PO DAILY 01/13/15 [History] Zafirlukast [Accolate] 20 mg PO BID 01/13/15 [History] Cyclobenzaprine HCl 10 mg [Cyclobenzaprine 10 MG] 10 mg PO TID 06/12/19 [History] Etodolac 200 mg PO TID 06/12/19 [History] Amitriptyline HCl 150 mg PO DAILY 02/07/21 [History] Apixaban [Eliquis] 5 mg PO BID 02/07/21 [History] Tramadol HCl 50 mg [Ultram 50 mg] 50 mg PO DAILY 02/07/21 [History] Hx Tetanus, Diphtheria Vaccination/Date Given: No Hx Influenza Vaccination/Date Given: Yes Hx Pneumococcal Vaccination/Date Given: Yes Immunizations Up to Date: Yes Travel Risk - International Travel Have you traveled outside of the country in past 3 weeks: No - Coronavirus Screening Are you exhibiting any of the following symptoms?: No Close contact with a COVID-19 positive Pt in past 14-21 Days: No - Vaccine Status Have you recieved a Covid-19 vaccination: No - Review of Systems Constitutional: No Symptoms Eyes: No Symptoms Ears, Nose, & Throat: No Symptoms Respiratory: No Symptoms Cardiac: No Symptoms Abdominal/Gastrointestinal: No Symptoms Genitourinary Symptoms: No Symptoms Musculoskeletal: No Symptoms Skin: No Symptoms Neurological: Headache Psychological: No Symptoms Endocrine: No Symptoms Hematologic/Lymphatic: No Symptoms Immunological/Allergic: No Symptoms - Past Medical History Pertinent Past Medical History: Yes Neurological History: Peripheral Neuropathy ENT History: No Pertinent History Cardiac History: Angina, Congestive Heart Failure, High Cholesterol, Hypertension, Myocardial Infarction ([place]) Respiratory History: Asthma, Bronchitis, COPD, Lung Cancer Endocrine Medical History: No Pertinent History Musculoskeletal History: Arthritis, Rheumatoid Arthritis GI Medical History: No Pertinent History History: No Pertinent History Psycho-Social History: No Pertinent History Female Reproductive Disorders: No Pertinent History Other Medical History: Cardiomyopathy, R hip fx 2003, recent pelvic fx. blood clot in left upper arm - Past Surgical History Past Surgical History: Yes Neuro Surgical History: No Pertinent History Cardiac: No Pertinent History Respiratory: Lobectomy Gastrointestinal: Cholecystectomy Musculoskeletal: Orthopedic Surgery Female Surgical History: Section, Hysterectomy Other Surgical History: R HIP SURG - Social History Smoking Status: Former smoker Exposure to second hand smoke: Yes Drug Use: none Patient Lives Alone: Yes - Female History Hx Now: No - Nursing Vital Signs Nursing Vital Signs: Initial Vital Signs Temperature 97.8 F 02/07/21 17:16 Pulse Rate 106 H 02/07/21 17:16 Respiratory Rate 22 02/07/21 17:16 Blood Pressure 172/113 02/07/21 17:16 O2 Sat by Pulse Oximetry 99 02/07/21 17:16 Pain Scale Pain Intensity 6 - Physical Exam General Appearance: no apparent distress, alert Eye Exam: PERRL/EOMI, eyes nml inspection Ears, Nose, Throat Exam: normal ENT inspection, TMs normal, pharynx normal Neck Exam: normal inspection, non-tender, supple, full range of motion Respiratory Exam: normal breath sounds, lungs clear Cardiovascular Exam: regular rate/rhythm, normal heart sounds Gastrointestinal/Abdominal Exam: soft, normal bowel sounds, No tenderness Extremity Exam: normal inspection, normal range of motion Mental Status Exam: alert, oriented x 3, 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 Exam: normal hearing, normal speech, PERRL, No facial asymmetry Coordination/Gait Exam: normal finger to nose, normal cerebellar function Motor/Sensory Exam: no motor deficit, no sensory deficit, no pronator drift, negative Babinski's sign DTR Exam: bicep (R): 2+, bicep (L): 2+, knee (R): 2+, knee (L): 2+ Skin Exam: normal color SpO2 Interpretation: normal SpO2: 99 O2 Delivery: Room Air Ordered Tests: Active Orders 24 hr Category Date Time Status IV Insertion STAT Care 02/07/21 17:35 Active HEAD WITHOUT CONTRAST [CT] Stat Exams 02/07/21 18:20 Taken Medication Summary Discontinued Medications Generic Name Dose Route Start Last Admin Trade Name Bruceq PRN Reason Stop Dose Admin Acetaminophen 975 mg 02/07/21 19:44 02/07/21 20:13 Tylenol 325 Mg PO 02/07/21 19:45 975 mg STAT STA Administration Acetaminophen Confirm 02/07/21 20:01 Tylenol 325 Mg Administered 02/07/21 20:02 Dose 975 mg .ROUTE .STK-MED ONE Diphenhydramine HCl 25 mg 02/07/21 17:35 02/07/21 17:41 Benadryl 50 Mg/Ml IV 02/07/21 17:36 25 mg STAT ONE Administration Diphenhydramine HCl Confirm 02/07/21 17:38 Benadryl 50 Mg/Ml Administered 02/07/21 17:39 Dose 50 mg .ROUTE .STK-MED ONE Metoclopramide HCl 10 mg 02/07/21 17:35 02/07/21 17:42 Reglan 10 Mg/2 Ml IV 02/07/21 17:36 10 mg STAT ONE Administration Metoclopramide HCl Confirm 02/07/21 17:38 Reglan 10 Mg/2 Ml Administered 02/07/21 17:39 Dose 10 mg .ROUTE .STK-MED ONE Morphine Sulfate 4 mg 02/07/21 19:43 02/07/21 20:13 Morphine Sulfate 4 Mg Inj IV 02/07/21 19:44 4 mg STAT ONE Administration Morphine Sulfate Confirm 02/07/21 20:01 Morphine Sulfate 4 Mg Inj Administered 02/07/21 20:02 Dose 4 mg .ROUTE .STK-MED ONE - Progress Progress: improved, re-examined Air Movement: fair Progress Note: 02/07/21 20:42 60 years old is evaluated for acute headache. Nonfocal neuro exam throughout stay in the ER. High risk for bleed because of being on Eliquis. Obtain CT head which is negative for any acute findings. Given Reglan Benadryl and morphine, on reevaluation headache is almost completely resolved. No neurological change on repeated evaluation. Stable for discharge with outpatient follow-up. Blood Culture(s) Obtained: No Antibiotics given: No Counseled pt/family regarding: diagnosis, need for follow-up, rad results - Departure Departure Disposition: Home Clinical Impression: Headache Qualifiers: Headache type: unspecified Headache chronicity pattern: acute headache Intractability: not intractable Qualified Code(s): R51.9 - Headache, unspecified Condition: Stable Critical Care Time: No Referrals: KERWIN KWOK [Primary Care Provider] - (1-2 days for reevaluation) Instructions: Headache, Adult (DC) Additional Instructions: Take Tylenol as needed for headache. Do not take ibuprofen.. Return to ER for intractable headache, numbness tingling weakness cfollow-up with primary care physician for reevaluation focal ER difficulty speech/visual disturbance etc.
[2021-02-07] MEDS ORDERED: MORPHINE SULFATE 4 MG INJ IV ONE (19:43)
[2021-02-07] MEDS ORDERED: TYLENOL 325 MG PO STA (19:44)
[2021-02-07] MEDS ORDERED: TYLENOL 325 MG ONE (20:01)
[2021-02-07] MEDS ORDERED: MORPHINE SULFATE 4 MG INJ ONE (20:01)
[2021-02-07 20:42] VITALS: O2SAT 99
[2021-02-07 21:13] VITALS: BP 144/88; PULSE 80
--- NOTE | 2021-02-08 22:36 | XRAY ---
Exam: CT of the head without IV contrast from 02/07/2021. Comparison: CT of the head without IV contrast from 03/22/2020. Indication: 60-year-old female with new onset of headache, patient recently placed on blood thinners. Technique: Non-IV contrast axial images were obtained through the brain. Reconstructed coronal and sagittal images were created and reviewed. Findings: The ventricles appear of unremarkable size. No focal mass effect or midline shift is seen. No acute intracranial hemorrhage or abnormal extra-axial fluid collection is seen. No low attenuation infarct is evident. The cortical sulci and basilar cisterns appear unremarkable. There is moderate deviation of the nasal septum toward the left. The visualized paranasal sinuses and mastoid air cells appear clear without effusions. Calvarium of the skull appears intact. Impression: 1. No acute intracranial bleed or other acute intracranial abnormality is seen. The findings are unchanged from 03/22/2020.
== END 2021-02-07 21:10 | disposition home or self-care (01) ==
LOC: ED 17:10
DX: R51.9 Headache, unspecified (principal); Z79.01 Long term (current) use of anticoagulants; Z79.899 Other long term (current) drug therapy; I10 Essential (primary) hypertension; I50.9 Heart failure, unspecified; I25.2 Old myocardial infarction
CPT/HCPCS: 70450; 96374; 96375; 99284; J1200; J2270; A9270-GY

== ENCOUNTER 2021-11-08 14:20 | Emergency (ER) | payer OTHER ==
--- NOTE | 2021-11-08 15:18 | ERPHSYRPT ---
- History of Present Illness Time Seen by Provider: 11/08/21 14:30 Source: patient Patient Subjective Stated Complaint: Pt was hanging a towel rack in her bathroom and fell backwards and her left leg went into the toilet and injured her left leg and right hip/upper leg Triage Nursing Assessment: Pt was brought to the ER by her neighbor, hypertensive, rates pain as 8/10, abrasion to upper lateral right thigh, no bruising noted to left leg, hx of right hip replacement, denies hitting head or LOC, pulses normal, doesn't appear to be in any distress Physician History: Patient 5-year-old female presents to our ED for evaluation of pain to her right hip and left leg. Patient fell in her bathroom. Patient's left foot went to the toilet. Patient fell onto her right hip. Patient has a history of pinning to her right hip. Patient concerned that she may have disrupted the hardware. Patient is ambulatory no distress. Pain described as an ache that is localized to the left leg and right hip. Patient wants me to areas x-rayed specifically. No other injuries no BHT or LOC. No neck pain. Cervical spine cleared clinically. No chest pain or shortness of breath. The fall was mechanical. The fall was not associated with any neuro cardiovascular symptomology. Patient voiced no other complaints concerns this time. No chest pain no shortness of breath. No fever. No other complaints Method of Injury: fell Occurred: just prior to arrival Quality: constant Severity of Pain-Max: moderate Severity of Pain-Current: mild Lower Extremities Pain: hip: right, leg: left Modifying Factors: Improves With: movement Associated Symptoms: none, No dizzy, No fainted, No seizure, No snapping sensation, No popping sensation Allergies/Adverse Reactions: amoxicillin trihydrate [From Augmentin] Allergy (Verified 05/27/20 15:10) Iodinated Contrast Media [Iodinated Contrast Media - IV Dye] Allergy (Verified 05/27/20 15:10) Penicillins Allergy (Verified 11/08/21 14:37) Sulfa (Sulfonamide Antibiotics) Allergy (Verified 05/27/20 15:10) Home Medications: Albuterol 2.5 mg/3 ml Neb [Proventil 2.5 mg/3 ml Neb] 2.5 mg PO QID 01/13/15 [History] Albuterol Sulfate [Proair Hfa] 8.5 gm PO QID 01/13/15 [History] Aspirin 81 gm Chew [Baby Aspirin 81 mg Chew] 162 mg PO DAILY 01/13/15 [History] Famotidine [Pepcid] 40 mg PO DAILY 01/13/15 [History] Fluticasone/Salmeterol [Advair 250-50 Diskus] 1 ea IH BID 01/13/15 [History] Omeprazole [Prilosec] 40 mg PO DAILY 01/13/15 [History] Zafirlukast [Accolate] 20 mg PO BID 01/13/15 [History] carvediloL [Coreg] 6.25 mg PO BID 01/13/15 [History] Cyclobenzaprine HCl 10 mg [Cyclobenzaprine 10 MG] 10 mg PO TID 06/12/19 [History] Amitriptyline HCl 50 mg PO BID 02/07/21 [History] Tramadol HCl 50 mg [Ultram 50 mg] 50 mg PO DAILY 02/07/21 [History] Hx Tetanus, Diphtheria Vaccination/Date Given: No Hx Influenza Vaccination/Date Given: Yes Hx Pneumococcal Vaccination/Date Given: Yes Travel Risk - International Travel Have you traveled outside of the country in past 3 weeks: No - Coronavirus Screening Are you exhibiting any of the following symptoms?: No - Vaccine Status Have you recieved a Covid-19 vaccination: No - Review of Systems Constitutional: No Symptoms, No Fever, No Chills Eyes: No Symptoms Ears, Nose, & Throat: No Symptoms Respiratory: No Symptoms, No Cough, No Dyspnea Cardiac: No Symptoms, No Chest Pain, No Edema, No Syncope Abdominal/Gastrointestinal: No Symptoms, No Abdominal Pain, No Nausea, No Vomiting, No Diarrhea Genitourinary Symptoms: No Symptoms, No Dysuria Musculoskeletal: No Symptoms, No Back Pain, No Neck Pain Skin: No Symptoms, No Rash Neurological: No Symptoms, No Dizziness, No Focal Weakness, No Sensory Changes Psychological: No Symptoms Endocrine: No Symptoms Hematologic/Lymphatic: No Symptoms Immunological/Allergic: No Symptoms All Other Systems: Reviewed and Negative - Past Medical History Pertinent Past Medical History: Yes Neurological History: Peripheral Neuropathy ENT History: No Pertinent History Cardiac History: Angina, Congestive Heart Failure, High Cholesterol, Hypertension, Myocardial Infarction ([place]) Respiratory History: Asthma, Bronchitis, COPD, Lung Cancer Endocrine Medical History: No Pertinent History Musculoskeletal History: Arthritis, Rheumatoid Arthritis GI Medical History: No Pertinent History History: No Pertinent History Psycho-Social History: No Pertinent History Female Reproductive Disorders: No Pertinent History Other Medical History: Cardiomyopathy, R hip fx 2003, recent pelvic fx. blood clot in left upper arm - Past Surgical History Past Surgical History: Yes Neuro Surgical History: No Pertinent History Cardiac: No Pertinent History Respiratory: Lobectomy Gastrointestinal: Cholecystectomy Musculoskeletal: Orthopedic Surgery Female Surgical History: Section, Hysterectomy Other Surgical History: R HIP SURG - Social History Smoking Status: Former smoker Exposure to second hand smoke: Yes Drug Use: none Patient Lives Alone: Yes - Female History Hx Now: No - Nursing Vital Signs Nursing Vital Signs: Initial Vital Signs Temperature 97.3 F 11/08/21 14:26 Pulse Rate 99 H 11/08/21 14:26 Blood Pressure 155/106 11/08/21 14:26 O2 Sat by Pulse Oximetry 100 11/08/21 14:26 Pain Scale Pain Intensity 8 - Physical Exam General Appearance: no apparent distress, alert Eyes, Ears, Nose, Throat Exam: normal ENT inspection, TMs normal, pharynx normal, moist mucous membranes Neck Exam: normal inspection, non-tender, supple, full range of motion Cardiovascular/Respiratory Exam: chest non-tender, normal breath sounds, regular rate/rhythm, no respiratory distress Gastrointestinal/Abdominal Exam: non-tender, soft, guarding, No no hernia Back Exam: normal inspection, normal range of motion, No CVA tenderness, No vertebral tenderness Hips Exam: right: swelling, other (Tenderness to palpation at the greater trochanter. Overlying soft tissue intact. No open or draining lesions. Extremity neurovascular intact distally. Compartments are soft. Cap refill less than 2 seconds. PT DP pulse palpable. Supervision abrasion right posterior thigh.), left: non-tender, normal inspection, normal range of motion, no evidence of injury, soft tissue tenderness Legs Exam: right leg: non-tender, normal inspection, normal range of motion, no evidence of injury, left leg: pain, other (Elevation at the anterolateral aspect of the left leg. Overlying soft tissue intact. No signs of trauma. No open or draining lesions. Extremity neurovascular tact distally. PT DP pulse palpable.) Knees Exam: bilateral knee: non-tender, normal inspection, normal range of motion, no evidence of injury Ankle Exam: bilateral ankle: non-tender, normal inspection, normal range of motion, no evidence of injury Foot Exam: bilateral foot: non-tender, normal inspection, normal range of motion, no evidence of injury Neuro/Tendon Exam: normal sensation, normal motor functions, normal tendon functions Mental Status Exam: alert, oriented x 3, cooperative Skin Exam: normal color, warm, dry SpO2 Interpretation: normal SpO2: 100 O2 Delivery: Room Air - Course Nursing assessment & vital signs reviewed: Yes - Radiology Exams Lower Leg X-ray Interpretation: Interpreted by me (No fracture dislocations. No soft tissue abnormalities.) Hip X-ray Interpretation: Interpreted by me (No fractures dislocations. No soft tissue abnormalities. Intact hip hardware) Ordered Tests: Active Orders 24 hr Category Date Time Status HIP UNI (2V) INCL PEL IF DONE Stat Exams 11/08/21 14:26 Ordered LOWER LEG Stat Exams 11/08/21 14:25 Ordered Medication Summary Discontinued Medications Generic Name Dose Route Start Last Admin Trade Name Bruceq PRN Reason Stop Dose Admin Acetaminophen 975 mg 11/08/21 15:31 Acetaminophen 325 Mg Tablet PO 11/08/21 15:32 STAT ONE - Progress Progress: improved Progress Note: Patient reassessed. She is well. Patient ambulatory. Patient received Tylenol for pain control. Patient states pain significantly improved. Vital stable. X-rays negative for fracture dislocation. Patient agrees to follow-up with her primary care doctor within 48 hours for evaluation. Portions of this note were created with voice recognition technology. There may be grammatical, spelling, punctuation or sound alike errors 11/08/21 15:26 Counseled pt/family regarding: diagnosis, need for follow-up, rad results - Departure Departure Disposition: Home Clinical Impression: Fall, Contusion of leg, left, Rt. hip contusion Condition: Stable Critical Care Time: No Referrals: KERWIN KWOK [Primary Care Provider] - Follow up/PCP as directed Additional Instructions: Discharge/Care Plan ELVA VANG was seen on 11/08/21 in the Emergency Room. The patient was counseled regarding Diagnosis,Lab results, Imaging studies, need for follow up and when to return to the Emergency Room. Prescriptions given: Discharge Note I have spoken with the patient and/or caregivers. I have explained the patient's condition, diagnosis and treatment plan based on the information available to me at this time. I have answered the patient's and/or caregiver's questions and addressed any concerns. The patient and/or caregivers have as good understanding of the patient's diagnosis, condition and treatment plan as can be expected at this point. The vital signs have been stable. The patient's condition is stable and appropriate for discharge from the emergency department. The patient will pursue further outpatient evaluation with the primary care physician or other designated or consulting physician as outlined in the discharge instructions. The patient and/or caregivers are agreeable to this plan of care and follow-up instructions have been explained in detail. The patient and/or caregivers have received these instruction. The patient/and or caregivers are aware that any significant change in condition or worsening of symptoms should prompt an immediate return to this or the closest emergency department or call 911.
[2021-11-08] MEDS ORDERED: TYLENOL 325 MG PO ONE (15:31)
[2021-11-08] MEDS ORDERED: TYLENOL 325 MG ONE (15:58)
[2021-11-08 16:26] VITALS: BP 147/96; PULSE 65; O2SAT 96
== END 2021-11-08 16:26 | disposition home or self-care (01) ==
LOC: ED 14:20
DX: S70.01XA Contusion of right hip, initial encounter (principal); S80.12XA Contusion of left lower leg, initial encounter; W01.190A Fall on same level from slipping, tripping and stumbling with subsequent striking against furniture, initial encounter; Y93.E9 Activity, other interior property and clothing maintenance; Y92.002 Bathroom of unspecified non-institutional (private) residence as the place of occurrence of the external cause; I11.0 Hypertensive heart disease with heart failure; I50.9 Heart failure, unspecified; E78.5 Hyperlipidemia, unspecified; J44.9 Chronic obstructive pulmonary disease, unspecified; Z79.899 Other long term (current) drug therapy; Z79.891 Long term (current) use of opiate analgesic
CPT/HCPCS: 73502; 73590; 99283; A9270-GY

== ENCOUNTER 2022-01-24 14:21 | Emergency (ER) | payer OTHER ==
[2022-01-24 14:38] VITALS: O2SAT 96
[2022-01-24] MEDS ORDERED: PERCOCET TABLET 5/325MG PO ONE (14:44)
[2022-01-24] MEDS ORDERED: PERCOCET TABLET 5/325MG ONE (14:46)
--- NOTE | 2022-01-24 15:15 | XRAY ---
Indication: Pain following injury. Comparison: April 21, 2019. 3 view left ankle again demonstrates mild osteopenia. No new/acute bony, articular, or soft tissue abnormalities.
--- NOTE | 2022-01-24 15:35 | ERPHSYRPT ---
- History of Present Illness Time Seen by Provider: 01/24/22 14:22 Source: patient Exam Limitations: no limitations Patient Subjective Stated Complaint: Pt states "I rolled my ankle on those balls that fall from the trees. It really hurts." Triage Nursing Assessment: Pt presented alert and oriented X 3, skin pwd Pt ambulates with a limp. pt has swelling noted to her left ankle, medially. Physician History: 61 years old female presented in the ER with chief complaint of left ankle pain after she twisted to fall walking yesterday. Since then she is having sharp pain anterior to the ankle, more with ambulation and partially with resting, minimal associated swelling. No injury anywhere else. Method of Injury: twisted Occurred: yesterday Quality: constant, sharpness Severity of Pain-Max: moderate Severity of Pain-Current: moderate Lower Extremities Pain: ankle: left Modifying Factors: Improves With: immobilization. Worsens With: movement Associated Symptoms: No snapping sensation, No popping sensation Allergies/Adverse Reactions: amoxicillin trihydrate [From Augmentin] Allergy (Verified 05/27/20 15:10) Iodinated Contrast Media [Iodinated Contrast Media - IV Dye] Allergy (Verified 05/27/20 15:10) Penicillins Allergy (Verified 11/08/21 14:37) Sulfa (Sulfonamide Antibiotics) Allergy (Verified 05/27/20 15:10) Home Medications: Albuterol 2.5 mg/3 ml Neb [Proventil 2.5 mg/3 ml Neb] 2.5 mg PO QID 01/13/15 [History] Albuterol Sulfate [Proair Hfa] 8.5 gm PO QID 01/13/15 [History] Aspirin 81 gm Chew [Baby Aspirin 81 mg Chew] 162 mg PO DAILY 01/13/15 [History] Famotidine [Pepcid] 40 mg PO DAILY 01/13/15 [History] Fluticasone/Salmeterol [Advair 250-50 Diskus] 1 ea IH BID 01/13/15 [History] Omeprazole [Prilosec] 40 mg PO DAILY 01/13/15 [History] Zafirlukast [Accolate] 20 mg PO BID 01/13/15 [History] carvediloL [Coreg] 6.25 mg PO BID 01/13/15 [History] Cyclobenzaprine HCl 10 mg [Cyclobenzaprine 10 MG] 10 mg PO TID 06/12/19 [History] Amitriptyline HCl 50 mg PO BID 02/07/21 [History] Tramadol HCl 50 mg [Ultram 50 mg] 50 mg PO DAILY 02/07/21 [History] Hx Tetanus, Diphtheria Vaccination/Date Given: No Hx Influenza Vaccination/Date Given: Yes Hx Pneumococcal Vaccination/Date Given: Yes Immunizations Up to Date: Yes Travel Risk - International Travel Have you traveled outside of the country in past 3 weeks: No - Coronavirus Screening Are you exhibiting any of the following symptoms?: No Close contact with a COVID-19 positive Pt in past 14-21 Days: No - Vaccine Status Have you recieved a Covid-19 vaccination: No - Review of Systems Constitutional: No Symptoms Ears, Nose, & Throat: No Symptoms Respiratory: No Symptoms Cardiac: No Symptoms Abdominal/Gastrointestinal: No Symptoms Genitourinary Symptoms: No Symptoms Musculoskeletal: Injury, Joint Pain, Joint Swelling Skin: No Symptoms Neurological: No Symptoms Psychological: No Symptoms Endocrine: No Symptoms Hematologic/Lymphatic: No Symptoms - Past Medical History Pertinent Past Medical History: Yes Neurological History: Peripheral Neuropathy ENT History: No Pertinent History Cardiac History: Angina, Congestive Heart Failure, High Cholesterol, Hypertension, Myocardial Infarction ([place]) Respiratory History: Asthma, Bronchitis, COPD, Lung Cancer Endocrine Medical History: No Pertinent History Musculoskeletal History: Arthritis, Rheumatoid Arthritis GI Medical History: No Pertinent History History: No Pertinent History Psycho-Social History: No Pertinent History Female Reproductive Disorders: No Pertinent History Other Medical History: Cardiomyopathy, R hip fx 2003, recent pelvic fx. blood clot in left upper arm - Past Surgical History Past Surgical History: Yes Neuro Surgical History: No Pertinent History Cardiac: No Pertinent History Respiratory: Lobectomy Gastrointestinal: Cholecystectomy Musculoskeletal: Orthopedic Surgery Female Surgical History: Section, Hysterectomy Other Surgical History: R HIP SURG - Social History Smoking Status: Former smoker Exposure to second hand smoke: Yes Drug Use: none Patient Lives Alone: Yes - Nursing Vital Signs Nursing Vital Signs: Initial Vital Signs Temperature 97.4 F 01/24/22 14:34 Pulse Rate 114 H 01/24/22 14:34 Respiratory Rate 20 01/24/22 14:34 Blood Pressure 156/93 01/24/22 14:34 O2 Sat by Pulse Oximetry 96 01/24/22 14:34 Pain Scale Pain Intensity 4 - Physical Exam General Appearance: no apparent distress Eyes, Ears, Nose, Throat Exam: normal ENT inspection Neck Exam: normal inspection, supple, full range of motion Cardiovascular/Respiratory Exam: normal breath sounds, regular rate/rhythm Back Exam: normal inspection, normal range of motion Ankle Exam: right ankle: non-tender, normal inspection, normal range of motion, no evidence of injury, left ankle: bone tenderness, soft tissue tenderness, swelling (ANTERIOR) Foot Exam: bilateral foot: non-tender, normal inspection, normal range of motion, no evidence of injury Neuro/Tendon Exam: normal sensation, normal motor functions, normal tendon functions Mental Status Exam: alert, oriented x 3, cooperative Skin Exam: normal color SpO2 Interpretation: normal SpO2: 96 O2 Delivery: Room Air Ordered Tests: Active Orders 24 hr Category Date Time Status Splint STAT Care 01/24/22 15:24 Active ANKLE (3 VIEWS) Stat Exams 01/24/22 15:06 Completed Medication Summary Discontinued Medications Generic Name Dose Route Start Last Admin Trade Name Jaime PRN Reason Stop Dose Admin Oxycodone/Acetaminophen 1 tab 01/24/22 14:44 01/24/22 14:48 Oxycodone Hcl/Apap 5 Mg/325 Mg Tablet PO 01/24/22 14:45 1 tab STAT ONE Administration Oxycodone/Acetaminophen Confirm 01/24/22 14:46 Oxycodone Hcl/Apap 5 Mg/325 Mg Tablet Administered 01/24/22 14:47 Dose 1 tab .ROUTE .STK-MED ONE - Progress Progress: improved Progress Note: 01/24/22 15:35 Negative for FX/dislocation, sprain , AIRCAST, weight bearing as tolerated. Counseled pt/family regarding: rad results - Departure Departure Disposition: Home Clinical Impression: Left ankle sprain Qualifiers: Encounter type: initial encounter Involved ligament of ankle: unspecified ligament Qualified Code(s): S93.402A - Sprain of unspecified ligament of left ankle, initial encounter Condition: Stable Critical Care Time: No Referrals: KERWIN KWOK [Primary Care Provider] - Follow up/PCP as directed MICHEL ADAME DPM [ACTIVE STAFF] - Follow up/PCP as directed (1-2 days for re evaluation) Instructions: Ankle Sprain (DC) Additional Instructions: makenna bearing as tolerated, tylenol/ibuprofen as needed. follow up with Podiatry for re evaluation in 1-2 days . return for worsening
[2022-01-24 15:45] VITALS: BP 148/73; PULSE 92
== END 2022-01-24 15:57 | disposition home or self-care (01) ==
LOC: ED 14:21
DX: S93.402A Sprain of unspecified ligament of left ankle, initial encounter (principal); W18.31XA Fall on same level due to stepping on an object, initial encounter; Y93.01 Activity, walking, marching and hiking; M25.572 Pain in left ankle and joints of left foot; E78.5 Hyperlipidemia, unspecified; I11.0 Hypertensive heart disease with heart failure; I50.9 Heart failure, unspecified; J44.9 Chronic obstructive pulmonary disease, unspecified; Z79.891 Long term (current) use of opiate analgesic; Z79.899 Other long term (current) drug therapy
CPT/HCPCS: 73610; 99284; A9270-GY

== ENCOUNTER 2022-04-18 13:21 | Day surgery (SDC) | payer OTHER ==
[2022-04-18] MEDS ORDERED: Marcaine Mpf 0.5% Vial 30 Ml IJ ONE (13:22)
[2022-04-18] MEDS ORDERED: Depo-Medrol 40 MG/ML IM ONE (13:22)
[2022-04-18] MEDS ORDERED: DIPRIVAN 200 MG/20 ML IV ONE (16:28)
[2022-04-18] MEDS ORDERED: Lactated Ringers 1,000 ML IV ONE (17:20)
--- NOTE | 2022-04-18 19:31 | XRAY ---
Indication: Bilateral SI joint injection. Intraoperative fluoroscopy provided for 18 seconds. 4 digital spot image submitted for interpretation demonstrates posterior needle tip projecting over the inferior left and right SI joint. Correlate with intraoperative findings/report.
--- NOTE | 2022-04-19 08:29 | XRAY ---
18 seconds of fluoroscopy was used in surgery for bilateral SI joint injections.
== END 2022-04-18 17:01 | disposition home or self-care (01) ==
LOC: SDC-PAIN 13:21
PROVIDERS: ATTEND Psychiatry & Neurology Pain Medicine
DX: M46.1 Sacroiliitis, not elsewhere classified (principal); Z79.899 Other long term (current) drug therapy
CPT/HCPCS: 27096; 72202; 77002; J1030; J1642; J2704; G0260

== ENCOUNTER 2023-05-03 13:11 | Emergency (ER) | payer OTHER ==
[2023-05-03] MEDS ORDERED: NORCO 5/325 MG PO ONE (13:29)
[2023-05-03 13:37] VITALS: TEMP 96.2
[2023-05-03] MEDS ORDERED: NORCO 5/325 MG ONE (13:38)
[2023-05-03 14:15] VITALS: RESP 16
[2023-05-03 15:27] VITALS: PULSE 68
[2023-05-03 17:10] VITALS: O2SAT 98
--- NOTE | 2023-05-03 17:31 | XRAY ---
CLINICAL HISTORY:pain COMPARISON:None. TECHNIQUE:X-ray of the right foot in AP, oblique and lateral views. FINDINGS: Normal bone mineral density was noted. A radiological examination of the right foot demonstrates no lytic or sclerotic bone lesion. No definite fracture is visible. The cortical margins of the osseous structures are within normal limits. Normal metatarsophalangeal and interphalangeal joint spaces. Articular margins are intact. No focal abnormality was seen in the great toe. Soft tissues appear unremarkable. IMPRESSION: No acute osseous abnormality was seen in the right foot. (Disclaimer: "A subtle bone abnormality or fracture may not be readily apparent on x-rays, thus clinical correlation and further imaging including follow-up CT, MRI, or follow-up x-rays are advised as needed"). Electronically Signed by: Letty Ruggiero MD. (05/03/2023 16:29:09 [employer]BILE ENGINEER)
[2023-05-03 17:41] VITALS: BP 123/73
--- NOTE | 2023-05-03 17:44 | ERPHSYRPT ---
- History of Present Illness Time Seen by Provider: 05/03/23 13:17 Source: patient Exam Limitations: no limitations Patient Subjective Stated Complaint: Pt states that she had a doppler yesterday to make sure she doesn't have a clot so she can have her toe nails removed, a fterwards her right foot at the toes and the pad began hurting Triage Nursing Assessment: Pt was brought to the ER by her neighbor, vitals wnl, rates pain as 8/10, right foot at the toes is swollen and slightly reddened, pulses normal, cap refill normal, denies injury Physician History: 62 years old female presented in the ER with chief complaint of right foot and toe pain. Patient reports she had arterial Doppler done on April 30 and afterwards started to have pain in the distal foot and toes with some swelling in the second and third toe. Denies any fall or trauma. Constant sharp pain moderate intensity. Denies history of gout. Timing/Duration: day(s) (2), gradual onset, worse Severity: moderate Modifying Factors: Improves With: medication, rest. Worsens With: movement Associated Symptoms: denies symptoms Allergies/Adverse Reactions: amoxicillin trihydrate [From Augmentin] Allergy (Verified 05/03/23 13:35) Iodinated Contrast Media [Iodinated Contrast Media - IV Dye] Allergy (Verified 05/03/23 13:35) Penicillins Allergy (Verified 05/03/23 13:35) Sulfa (Sulfonamide Antibiotics) Allergy (Verified 05/03/23 13:35) Home Medications: Albuterol 2.5 mg/3 ml Neb [Proventil 2.5 mg/3 ml Neb] 2.5 mg PO QID 01/13/15 [History] Albuterol Sulfate [Proair Hfa] 8.5 gm PO QID 01/13/15 [History] Aspirin 81 gm Chew [Baby Aspirin 81 mg Chew] 162 mg PO DAILY 01/13/15 [History] Famotidine [Pepcid] 40 mg PO DAILY 01/13/15 [History] Fluticasone/Salmeterol [Advair 250-50 Diskus] 1 ea IH BID 01/13/15 [History] Omeprazole [Prilosec] 40 mg PO DAILY 01/13/15 [History] Zafirlukast [Accolate] 20 mg PO BID 01/13/15 [History] carvediloL [Coreg] 6.25 mg PO BID 01/13/15 [History] Cyclobenzaprine HCl 10 mg [Cyclobenzaprine 10 MG] 0.5 tab PO TID 06/12/19 [History] Amitriptyline HCl 50 mg PO DAILY 02/07/21 [History] Tramadol HCl 50 mg [Ultram 50 mg] 50 mg PO TID 02/07/21 [History] Fenofibrate Nanocrystallized [Fenofibrate] 48 mg PO DAILY 05/03/23 [History] Furosemide 20 mg [Lasix 20 mg] 20 mg PO DAILY 05/03/23 [History] Gabapentin [Neurontin ] 400 mg PO Q6H 05/03/23 [History] Lisinopril 5 mg [Zestril 5 MG] 5 mg PO DAILY 05/03/23 [History] Hx Tetanus, Diphtheria Vaccination/Date Given: No Hx Influenza Vaccination/Date Given: Yes Hx Pneumococcal Vaccination/Date Given: Yes Travel Risk - International Travel Have you traveled outside of the country in past 3 weeks: No - Coronavirus Screening Are you exhibiting any of the following symptoms?: No Close contact with a COVID-19 positive Pt in past 14-21 Days: No - Vaccine Status Have you recieved a Covid-19 vaccination: No - Review of Systems Constitutional: No Symptoms Ears, Nose, & Throat: No Symptoms Respiratory: No Symptoms Cardiac: No Symptoms Abdominal/Gastrointestinal: Constipation Musculoskeletal: Arthralgias, Joint Pain Skin: No Symptoms Neurological: No Symptoms - Past Medical History Pertinent Past Medical History: Yes Neurological History: No Pertinent History ENT History: No Pertinent History Cardiac History: Congestive Heart Failure, Coronary Artery Disease, Hypertension, Myocardial Infarction ([place]) Respiratory History: COPD, Emphysema Endocrine Medical History: Hypothyroidism Musculoskeletal History: Osteoarthritis GI Medical History: No Pertinent History History: No Pertinent History Psycho-Social History: No Pertinent History Female Reproductive Disorders: No Pertinent History Other Medical History: CARDIOMYOPOTHY, [place] X3, - Past Surgical History Past Surgical History: Yes Neuro Surgical History: No Pertinent History Cardiac: No Pertinent History Respiratory: Lobectomy Gastrointestinal: Cholecystectomy Musculoskeletal: Orthopedic Surgery Female Surgical History: Section, Hysterectomy Other Surgical History: R HIP SURG - Social History Smoking Status: Former smoker Exposure to second hand smoke: No Drug Use: none Patient Lives Alone: Yes - Nursing Vital Signs Nursing Vital Signs: Initial Vital Signs Temperature 96.2 F 05/03/23 13:15 Pulse Rate 89 05/03/23 13:15 Blood Pressure 126/89 05/03/23 13:15 O2 Sat by Pulse Oximetry 96 05/03/23 13:15 Pain Scale Pain Intensity 6 - Physical Exam General Appearance: no apparent distress, alert Ears, Nose, Throat Exam: normal ENT inspection Neck Exam: normal inspection, full range of motion Respiratory Exam: normal breath sounds, lungs clear Cardiovascular Exam: regular rate/rhythm, normal heart sounds Extremity Exam: normal range of motion, pelvis stable, tenderness (Second and third right toes with intact range of motion. Capillary refill less than 3 seconds. Mild swelling of second and third toes.) Neurologic Exam: alert, oriented x 3, cooperative Skin Exam: normal color SpO2 Interpretation: normal SpO2: 98 O2 Delivery: Room Air Ordered Tests: Active Orders 24 hr Category Date Time Status Cold Application STAT Care 05/03/23 13:42 Active FOOT (MINIMUM 3 VIEWS) Stat Exams 05/03/23 13:28 Completed Medication Summary Discontinued Medications Generic Name Dose Route Start Last Admin Trade Name Jaime PRN Reason Stop Dose Admin Hydrocodone Bitart/Acetaminophen 1 tab 05/03/23 13:29 05/03/23 13:39 Hydrocodone/Apap 5/325 1 Tab Tablet PO 05/03/23 13:30 1 tab STAT ONE Administration Hydrocodone Bitart/Acetaminophen Confirm 05/03/23 13:38 Hydrocodone/Apap 5/325 1 Tab Tablet Administered 05/03/23 13:39 Dose 1 tab .ROUTE .STK-MED ONE - Progress Progress: improved Progress Note: 05/03/23 17:41 62 years old female presented in the ER with chief complaint of right foot and toe pain. Patient reports she had arterial Doppler done on April 30 and afterwards started to have pain in the distal foot and toes with some swelling in the second and third toe. Denies any fall or trauma. Constant sharp pain moderate intensity. Denies history of gout. She has intact sensation and cap refill less than 3 seconds. Has some swelling second and third toe. No signs of cellulitis. Has no obvious deformity. Obtain x-rays which are negative for fracture dislocation. No known trauma. X- rays of looks like has arthritis with decreased joint spaces. Recommended continue with tramadol, follow-up with podiatry for reevaluation. Counseled pt/family regarding: diagnosis, need for follow-up, rad results Medical Desision Making - Diagnostic Testing Diagnostic test were ordered, analyzed, and reviewed by me: Yes Radiological Interpretation: Reviewed by me, Teleradiologist Report - Departure Departure Disposition: Home Clinical Impression: Acute foot pain Condition: Stable Critical Care Time: No Referrals: KERWIN KWOK [Primary Care Provider] - Follow Up with PCP/3 days MICHEL ADAME DPM [ACTIVE STAFF] - Follow up/PCP as directed (Early next week) Instructions: Foot Sprain (DC) Additional Instructions: Take Tylenol/tramadol as needed for pain. Follow-up with primary care and podiatry for reevaluation early next week. Return to ER for worsening pain swelling, difficulty ambulation.
== END 2023-05-03 17:49 | disposition home or self-care (01) ==
LOC: ED 13:11
DX: M79.671 Pain in right foot (principal); I11.0 Hypertensive heart disease with heart failure; I50.9 Heart failure, unspecified; Z79.899 Other long term (current) drug therapy; Z28.310 Unvaccinated for COVID-19
CPT/HCPCS: 73630; 99283; A9270-GY

== ENCOUNTER 2023-07-23 09:48 | Day surgery (SDC) | payer OTHER ==
[2023-07-23] MEDS ORDERED: Lactated Ringers 1,000 ML IV ONE (10:32)
[2023-07-23 10:45] LABS: Absolute Neutrophil Ct (ANC) 3.43 x10^3/uL (1.4-6.9); Basophil (Absolute #) 0.06 x10^3/uL (0-0.4); Eosinophil (Absolute #) 0.37 x10^3/uL (0-0.5); Hematocrit 43.8 % (35-47); Hemoglobin 15.5 g/dL (12.0-16.0); IMMATURE GRAN # 0.04 x10^3u/L (0.00-0.03); IMMATURE GRAN % 0.7 % (0.00-0.4); Lymphocyte (Absolute #) 1.76 x10^3/uL (1.0-4.6); Lymphocytes % 28.8 % (24.0-44.0); Mean Cell Volume 90.9 fL (78-100); Mean Corpuscular Hemoglobin 32.2 pg (26-32); Mean Corpuscular Hgb Concent. 35.4 g/dL (32-36); Mean Platelet Volume 9.7 fL (7.5-11.0); Monocyte (Absolute #) 0.46 x10^3/uL (0.0-1.3); Monocytes % 7.5 % (0.0-12.0); Platelet Count 337 x10^3/uL (150-450); Red Blood Count 4.82 x10^6/uL (4.1-5.4); Red Cell Distribution Width 12.4 % (11.5-14.0); White Blood Count 6.1 x10^3/uL (4.0-10.5)
[2023-07-23 10:58] LABS: ALBUMIN 4.4 g/dL (3.5-5.0); ANION GAP 9.2 MEQ/L (5-15); BILIRUBIN,TOTAL 0.9 mg/dL (0.2-1.3); Calcium 9.4 mg/dL (8.4-10.2); Creatinine 1 1.14 mg/dL (0.52-1.04); Total Protein 7.2 g/dL (6.3-8.2)
[2023-07-23] MEDS ORDERED: Lactated Ringers 1,000 ML IV SCH (11:00)
[2023-07-23 11:10] VITALS: RESP 18
[2023-07-23] MEDS ORDERED: DIPRIVAN 200 MG/20 ML IV ONE (11:30)
[2023-07-23] MEDS ORDERED: Xylocaine-Mpf 2% 5 Ml Vial ONE (11:32)
[2023-07-23] MEDS ORDERED: Xylocaine 1% Vial 30 ML PF IJ ONE (11:41)
[2023-07-23] MEDS ORDERED: Versed 2 MG/2 ML Injection ONE (11:41)
[2023-07-23] MEDS ORDERED: Marcaine Mpf 0.5% Vial 30 Ml ONE (11:41)
[2023-07-23] MEDS ORDERED: SUBLIMAZE 100 MCG/2 ML ONE (11:42)
[2023-07-23] MEDS ORDERED: CLINDAMYCIN-D5W 900 MG/50 ML*** 900 MG/50 ML BAG IV ONE (11:50)
[2023-07-23] MEDS ORDERED: Amidate 20 MG/10 ML IV ONE ×2 (11:56→12:13)
[2023-07-23] MEDS ORDERED: CLINDAMYCIN-D5W 900 MG/50 ML*** 900 MG/50 ML BAG IV SCH (12:00)
[2023-07-23] MEDS ORDERED: Triple Antibiotic Ointment ONE (12:35)
[2023-07-23 13:16] VITALS: TEMP 96.9; O2SAT 96
[2023-07-23 13:20] VITALS: BP 129/79; PULSE 94
[2023-07-23] MEDS ORDERED: Klor Con PO SCH (13:30)
--- NOTE | 2023-07-26 09:55 | OP ---
SURGERY DATE: 07/23/2023 SURGERY TIME: 1200 PREOPERATIVE DIAGNOSIS: 1. ONYCHOMYCOSIS BILATERAL FEET, DIGITS 2-5 ON THE LEFT AND 1-5 ON THE RIGHT. 2. RIGHT FOOT PAIN. 3. LEFT FOOT PAIN. 4. INGROWING TOENAILS. POSTOPERATIVE DIAGNOSIS: 1. ONYCHOMYCOSIS BILATERAL FEET, DIGITS 2-5 ON THE LEFT AND 1-5 ON THE RIGHT. 2. RIGHT FOOT PAIN. 3. LEFT FOOT PAIN. 4. INGROWING TOENAILS. PROCEDURE: 1. Nail avulsion matrixectomy of digits 2-5 on the left and 1-5 on the right. SURGEON: Eliel Gary D.P.M. PHD INTERN: None. ANESTHESIA: MAC. ESTIMATED BLOOD LOSS: Approximately 3 cc. MATERIALS: None. INJECTABLES: 40 cc of a 1:1 mixture of 1% Lidocaine plain and 0.5% Bupivicaine plain injected in a digital block type fashion to the bilateral lower extremity for each digit, approximately 4 cc were used apiece. INDICATIONS FOR PROCEDURE: Brynn is a very pleasant 62 year-old female known to my service for painful ingrowing toenails as well as onychomycosis. The patient has had a significant issue with this and due to lack of hand strength, she has been unable to cut her toenails. The service was offered to her for continuous nail care. However, the patient indicated that she would like to proceed with removal of the toenails. Vascular studies were obtained demonstrating adequate blood flow and no significant medical comorbidities were identified. At this time, the patient would like to proceed. All risks, complications, and benefits of surgical intervention at this time were discussed with the patient including, but not limited to, infection; hematoma; seroma; possibility of delayed wound healing; non-wound healing; possibility of recurrence which is founded based on literature to be around 85% successful. With all these taken in to consideration, the patient wishes to proceed. Plenty of time is allowed for the patient to ask questions which were answered to her apparent satisfaction. It is at this time we decided to proceed. DESCRIPTION OF PROCEDURE: The patient was brought into the OR. Placed on the OR table in the supine position. At this time, MAC was administered until the patient was sedated. The bilateral lower extremities were prepped and draped in the typical sterile fashion and lowered onto the surgical field. At this time, block consisting of 40 cc of a 1:1 mixture of 1% Lidocaine plain and 0.5% Bupivicaine plain were injected in digital block type fashion to 9 of the digits, 4 on the left foot and 5 on the right foot. Following this, the same procedure took place for each individual toenail. A spatula was utilized to elevate the nail from the nailbed. Kallie was utilized to remove the nail from the nailbed. A curette was utilized to curette the nail matrix until damage and then solution of 89% Phenol was then utilized in three 30 second applications to each individual toenail to the bilateral lower extremity. Following applications, 70% isopropyl alcohol was utilized to neutralize the Phenol. Dressings consisting of triple antibiotic, Adaptic, 2 X 2's, and Coban were applied to each toe. The patient was then reversed from anesthesia and returned to the PACU with vital signs stable and vascular status intact. The patient handled the anesthesia as well as the procedure without significant complication. Patient was provided postoperative care instructions for the nails following the procedure. Follow-up in 2 weeks.
== END 2023-07-23 13:30 | disposition home or self-care (01) ==
LOC: SDC 09:48
PROVIDERS: ATTEND Podiatrist Foot & Ankle Surgery
DX: B35.1 Tinea unguium (principal); L60.0 Ingrowing nail; M79.671 Pain in right foot
CPT/HCPCS: 11750; 36415; 80053; 85025; 93005; J2001; J2250; J2704; J3010; A9270-GY

== ENCOUNTER 2024-02-07 22:11 | Emergency (ER) | payer OTHER ==
[2024-02-07 22:24] VITALS: TEMP 97.5
--- NOTE | 2024-02-07 22:43 | ERPHSYRPT ---
- History of Present Illness Time Seen by Provider: 02/07/24 22:30 Source: patient Exam Limitations: no limitations Patient Subjective Stated Complaint: shortness of breath since yesterday, pt seen PCP for issue yesterday and was prescribed medication for pneumonia but pt has not picked up prescriptions yet Triage Nursing Assessment: pt ambulatory to bed by self with steady gait, pt alert and oriented x3, skin pwd, pt c/o sob since yesterday, pt was prescribed antibiotics for pna and was given a steriod shot, pt has not picked up antibiotics and was supposed to go for outpatient labs and chest xray but has not gone yet, pt talking in complete symptoms without difficulty, o2 sat 97% on RA, hx of COPD Physician History: 63yo f pmhx lung cancer w/ right partial lobectomy in 2017 presents via private vehicle for sob. Pt reports this has been ongoing for the past 3-4d, states she saw her PCP Dr Handy this week and was instructed to take prednisone and additional dose of lasix, reports she was prescribed an antibiotic but never filled the prescription b/c the line was too long at the pharmacy. Pt reports o rthopnea, reports minimally productive cough - clear sputum. Pt also reports some chest discomfort that worsens w/ coughing, reports it is located on her left chest and is local and non-radiating. Pt currently denies cp, n/v/abdominal pain, fevers. Pt is not taking chemo/radiation or blood thinners. Pt follows w/ Dr Curtis for pulmonology. Timing/Duration: day(s) (4) Activities at Onset: none Severity of Dyspnea-Max: mild Severity of Dyspnea-Current: mild Possible Cause: frequent episodes Modifying Factors: Improves With: lying down Associated Symptoms: cough, chest pain/discomfort, No edema, No fever, No weakness, No chills, No leg swelling Allergies/Adverse Reactions: amoxicillin trihydrate [From Augmentin] Allergy (Verified 02/07/24 22:13) Nausea and Vomiting Iodinated Contrast Media [Iodinated Contrast Media - IV Dye] Allergy (Verified 02/07/24 22:13) Penicillins Allergy (Verified 02/07/24 22:13) reports she can take some penicillins can not take augmentin Sulfa (Sulfonamide Antibiotics) Allergy (Verified 02/07/24 22:13) Home Medications: Cyclobenzaprine HCl 10 mg [Cyclobenzaprine 10 MG] 0.5 tab PO TID 06/12/19 [History] Amitriptyline HCl 50 mg PO DAILY 02/07/21 [History] Furosemide 20 mg [Lasix 20 mg] 20 mg PO DAILY 05/03/23 [History] Albuterol 2.5 mg/0.5 ml [PROVENTIL Solution 2.5 MG/0.5 ML] 2.5 mg IH Q4- 6HPRN PRN 07/23/23 [History] Albuterol 8 gm Mdi Hfa [Ventolin Hfa MDI] 2 puffs IH BID PRN 07/23/23 [H istory] Atorvastatin Calcium 80 mg PO DAILY 07/23/23 [History] Famotidine 20 mg [Pepcid 20 MG] 20 mg PO DAILY 07/23/23 [History] Fenofibrate 40 mg PO DAILY 07/23/23 [History] Gabapentin [Neurontin ] 400 mg PO QID 07/23/23 [History] Omeprazole 40 mg PO DAILY 07/23/23 [History] Tramadol HCl 50 mg [Ultram 50 mg] 50 mg PO Q4-6HPRN PRN 07/23/23 [History] Losartan Potassium 50 mg [Cozaar 50 MG] 50 mg PO DAILY 02/07/24 [History] Hx Tetanus, Diphtheria Vaccination/Date Given: No Hx Influenza Vaccination/Date Given: Yes Hx Pneumococcal Vaccination/Date Given: Yes Travel Risk - International Travel Have you traveled outside of the country in past 3 weeks: No - Emerging Infectious Disease Are you exhibiting symptoms associated with any current EIDs: Yes Symptoms: Shortness of Breath - Review of Systems Constitutional: No Symptoms Ears, Nose, & Throat: No Symptoms Respiratory: Cough, Dyspnea, Other, No Dyspnea on Exertion (BARBOZA), No Stridor, No Wheezing Cardiac: Chest Pain (local, non-radiating, worse w/ cough) Abdominal/Gastrointestinal: No Symptoms - Past Medical History Pertinent Past Medical History: Yes Neurological History: No Pertinent History ENT History: No Pertinent History Cardiac History: Congestive Heart Failure, Coronary Artery Disease, Hypertension, Myocardial Infarction ([place]) Respiratory History: COPD, Emphysema Endocrine Medical History: Hypothyroidism Musculoskeletal History: Osteoarthritis GI Medical History: No Pertinent History History: No Pertinent History Psycho-Social History: No Pertinent History Female Reproductive Disorders: No Pertinent History Other Medical History: CARDIOMYOPOTHY, [place] X3, - Past Surgical History Past Surgical History: Yes Neuro Surgical History: No Pertinent History Cardiac: No Pertinent History Respiratory: Lobectomy Gastrointestinal: Cholecystectomy Musculoskeletal: Orthopedic Surgery Female Surgical History: Section, Hysterectomy Other Surgical History: R HIP SURG. left hand and wrist - Social History Smoking Status: Former smoker Exposure to second hand smoke: No Drug Use: none Patient Lives Alone: Yes - Nursing Vital Signs Nursing Vital Signs: Initial Vital Signs Temperature 97.5 F 02/07/24 22:15 Pulse Rate 95 H 02/07/24 22:15 Respiratory Rate 19 02/07/24 22:15 Blood Pressure 180/109 02/07/24 22:15 O2 Sat by Pulse Oximetry 97 02/07/24 22:15 Pain Scale Pain Intensity 2 - Physical Exam General Appearance: no apparent distress, alert Ears, Nose, Throat Exam: normal ENT inspection Respiratory Exam: normal breath sounds (exluding right lower lobe - diminished ), lungs clear, airway intact, diminished breath sounds (in right lower lobe), No chest tenderness, No respiratory distress, No accessory muscle use, No crackles/rales, No rhonchi, No wheezing Cardiovascular/Chest Exam: normal heart sounds, regular rate/rhythm, normal peripheral pulses, No edema Abdominal/Gastrointestinal Exam: soft Neurologic Exam: alert, oriented x 3, cooperative SpO2 Interpretation: normal SpO2: 97 O2 Delivery: Room Air - Course EKG Interpreted by Me: RATE (95), Sinus Rhythm, Non-specific ST Changes (not suggestive of ischemia; qtcb 456) Ordered Tests: Active Orders 24 hr Category Date Time Status EKG-ER Only STAT Care 02/07/24 22:35 Active IV Insertion STAT Care 02/07/24 22:35 Active CHEST 2 VIEWS (PA AND LAT) Stat Exams 02/07/24 22:36 Taken CHEST WITHOUT CONTRAST [CT] Stat Exams 02/07/24 22:53 Completed CBC W DIFF Stat Lab 02/07/24 22:45 Completed CMP Stat Lab 02/07/24 22:45 Completed D-DIMER QUANTITATIVE Stat Lab 02/07/24 22:45 Completed Lactic Acid Stat Lab 02/07/24 22:40 Completed NT PRO BNPII Stat Lab 02/07/24 22:45 Completed PROCALCITONIN Stat Lab 02/07/24 22:45 Completed TROPONIN Q4H Lab 02/07/24 22:45 Completed TROPONIN Q4H Lab 02/08/24 02:45 Ordered TROPONIN Q4H Lab 02/08/24 06:45 Ordered Medication Summary Discontinued Medications Generic Name Dose Route Start Last Admin Trade Name Freq PRN Reason Stop Dose Admin Furosemide 40 mg 02/07/24 23:39 02/07/24 23:52 Furosemide 40 Mg/4 Ml Vial IV 02/07/24 23:40 40 mg STAT ONE Administration Furosemide Confirm 02/07/24 23:47 Furosemide 40 Mg/4 Ml Vial Administered 02/07/24 23:48 Dose 40 mg .ROUTE .STK-MED ONE Potassium Chloride 40 meq 02/07/24 23:41 02/07/24 23:51 Potassium Chloride Tab 10 Meq Tab PO 02/07/24 23:42 40 meq STAT ONE Administration Potassium Chloride Confirm 02/07/24 23:47 Potassium Chloride Tab 10 Meq Tab Administered 02/07/24 23:48 Dose 40 meq .ROUTE .STK-MED ONE Lab/Rad Data: Laboratory Result Diagrams 02/07/24 22:45 02/07/24 22:45 Laboratory Results 02/07/24 02/07/24 02/07/24 Range/Units 23:10 22:45 22:45 WBC (4.0-10.5) x10^3/uL RBC (4.1-5.4) x10^6/uL Hgb (12.0-16.0) g/dL Hct (35-47) % MCV (78-100) fL MCH (26-32) pg MCHC (32-36) g/dL RDW (11.5-14.0) % Plt Count (150-450) x10^3/uL MPV (7.5-11.0) fL Gran % (36.0-66.0) % Immature Gran % (Auto) (0.00-0.4) % Nucleat RBC Rel Count (0.00-0.1) % Eos # (Auto) (0-0.5) x10^3/uL Immature Gran # (Auto) (0.00-0.03) x10^3u/L Absolute Lymphs (auto) (1.0-4.6) x10^3/uL Absolute Monos (auto) (0.0-1.3) x10^3/uL Absolute Nucleated RBC (0.00-0.01) x10^3u/L Lymphocytes % (24.0-44.0) % Monocytes % (0.0-12.0) % Eosinophils % (0.00-5.0) % Basophils % (0.0-0.4) % Absolute Granulocytes (1.4-6.9) x10^3/uL Basophils # (0-0.4) x10^3/uL D-Dimer 0.52 H (0.0-0.50) mg/L Sodium (135-145) mmol/L Potassium (3.5-5.1) mmol/L Chloride (98-107) mmol/L Carbon Dioxide (22-30) mmol/L Anion Gap (5-15) MEQ/L BUN (7-17) mg/dL Creatinine (0.52-1.04) mg/dL Estimated GFR ML/MIN Glucose (74-106) mg/dL Lactic Acid (0.4-2.0) Calcium (8.4-10.2) mg/dL Total Bilirubin (0.2-1.3) mg/dL AST (14-36) U/L ALT (0-35) U/L Alkaline Phosphatase (38-126) U/L Troponin I < 0.012 (0.000-0.033) ng/mL NT-Pro-B Natriuret Pep (<300) pg/mL Serum Total Protein (6.3-8.2) g/dL Albumin (3.5-5.0) g/dL Procalcitonin (0.030-0.080) ng/mL Influenza Type A Ag NEGATIVE (NEGATIVE) Influenza Type B Ag NEGATIVE (NEGATIVE) RSV (PCR) NEGATIVE (NEGATIVE) SARS-CoV-2 (PCR) NEGATIVE (NEGATIVE) 02/07/24 02/07/24 02/07/24 Range/Units 22:45 22:45 22:45 WBC 11.7 H (4.0-10.5) x10^3/uL RBC 4.22 (4.1-5.4) x10^6/uL Hgb 13.8 (12.0-16.0) g/dL Hct 39.0 (35-47) % MCV 92.4 (78-100) fL MCH 32.7 H (26-32) pg MCHC 35.4 (32-36) g/dL RDW 12.2 (11.5-14.0) % Plt Count 277 (150-450) x10^3/uL MPV 10.3 (7.5-11.0) fL Gran % 83.9 H (36.0-66.0) % Immature Gran % (Auto) 0.3 (0.00-0.4) % Nucleat RBC Rel Count 0.0 (0.00-0.1) % Eos # (Auto) 0.01 (0-0.5) x10^3/uL Immature Gran # (Auto) 0.04 H (0.00-0.03) x10^3u/L Absolute Lymphs (auto) 1.25 (1.0-4.6) x10^3/uL Absolute Monos (auto) 0.56 (0.0-1.3) x10^3/uL Absolute Nucleated RBC 0.00 (0.00-0.01) x10^3u/L Lymphocytes % 10.7 L (24.0-44.0) % Monocytes % 4.8 (0.0-12.0) % Eosinophils % 0.1 (0.00-5.0) % Basophils % 0.2 (0.0-0.4) % Absolute Granulocytes 9.85 H (1.4-6.9) x10^3/uL Basophils # 0.02 (0-0.4) x10^3/uL D-Dimer (0.0-0.50) mg/L Sodium 142 (135-145) mmol/L Potassium 3.1 L (3.5-5.1) mmol/L Chloride 104 (98-107) mmol/L Carbon Dioxide 29 (22-30) mmol/L Anion Gap 11.8 (5-15) MEQ/L BUN 27 H (7-17) mg/dL Creatinine 0.95 (0.52-1.04) mg/dL Estimated GFR 66.9 ML/MIN Glucose 136 H (74-106) mg/dL Lactic Acid (0.4-2.0) Calcium 9.6 (8.4-10.2) mg/dL Total Bilirubin 0.50 (0.2-1.3) mg/dL AST 25 (14-36) U/L ALT 22 (0-35) U/L Alkaline Phosphatase 75 (38-126) U/L Troponin I (0.000-0.033) ng/mL NT-Pro-B Natriuret Pep 1290 (<300) pg/mL Serum Total Protein 7.2 (6.3-8.2) g/dL Albumin 4.5 (3.5-5.0) g/dL Procalcitonin 0.047 (0.030-0.080) ng/mL Influenza Type A Ag (NEGATIVE) Influenza Type B Ag (NEGATIVE) RSV (PCR) (NEGATIVE) SARS-CoV-2 (PCR) (NEGATIVE) 02/07/24 Range/Units 22:40 WBC (4.0-10.5) x10^3/uL RBC (4.1-5.4) x10^6/uL Hgb (12.0-16.0) g/dL Hct (35-47) % MCV (78-100) fL MCH (26-32) pg MCHC (32-36) g/dL RDW (11.5-14.0) % Plt Count (150-450) x10^3/uL MPV (7.5-11.0) fL Gran % (36.0-66.0) % Immature Gran % (Auto) (0.00-0.4) % Nucleat RBC Rel Count (0.00-0.1) % Eos # (Auto) (0-0.5) x10^3/uL Immature Gran # (Auto) (0.00-0.03) x10^3u/L Absolute Lymphs (auto) (1.0-4.6) x10^3/uL Absolute Monos (auto) (0.0-1.3) x10^3/uL Absolute Nucleated RBC (0.00-0.01) x10^3u/L Lymphocytes % (24.0-44.0) % Monocytes % (0.0-12.0) % Eosinophils % (0.00-5.0) % Basophils % (0.0-0.4) % Absolute Granulocytes (1.4-6.9) x10^3/uL Basophils # (0-0.4) x10^3/uL D-Dimer (0.0-0.50) mg/L Sodium (135-145) mmol/L Potassium (3.5-5.1) mmol/L Chloride (98-107) mmol/L Carbon Dioxide (22-30) mmol/L Anion Gap (5-15) MEQ/L BUN (7-17) mg/dL Creatinine (0.52-1.04) mg/dL Estimated GFR ML/MIN Glucose (74-106) mg/dL Lactic Acid 1.2 (0.4-2.0) Calcium (8.4-10.2) mg/dL Total Bilirubin (0.2-1.3) mg/dL AST (14-36) U/L ALT (0-35) U/L Alkaline Phosphatase (38-126) U/L Troponin I (0.000-0.033) ng/mL NT-Pro-B Natriuret Pep (<300) pg/mL Serum Total Protein (6.3-8.2) g/dL Albumin (3.5-5.0) g/dL Procalcitonin (0.030-0.080) ng/mL Influenza Type A Ag (NEGATIVE) Influenza Type B Ag (NEGATIVE) RSV (PCR) (NEGATIVE) SARS-CoV-2 (PCR) (NEGATIVE) - Progress Progress: improved Air Movement: good Progress Note: 02/07/24 23:54 BNP > 1300 - given 40mg IV lasix also given 40mg PO potassium, K was 3.1 on cmp trop negative procal negative cxr not suggestive of pna or significant pulmonary edema 02/08/24 00:01 d dimer 0.52 - age adjusted 640ug/L - correlates to low likelihood of VTE - in setting of appropriate O2 saturation on RA and normal RR, will defer CTA at this time, will obtain non contrast CT for further lung evaluation 02/08/24 01:09 non-con CT chest: Calcified nodule is identified in the outer half of right breast measuring 8 x 12 mm. There is no definite mass lesion in the chest wall. Mild spondylotic changes in the visualized spine. Complete loss of disc space at T10-T11 level giving a block vertebral appearance. Scanned upper abdomen is unremarkable. IMPRESSION: 1. No definite consolidative lesions. 2. Atelectatic bands seen at right upper and both lower lung lobes. 3. Linear calcification seen along the right oblique fissure. 4. Rest of the findings are as stated above. 02/08/24 01:10 likely acute exacerbation of CHF in setting of orthopnea and elevated BNP pt sob improved w/ IV lasix plan to dc home w/ close PCP follow up w/ Dr Handy next week Instructed to continue antibiotics prescribed by PCP (clindamycin) outpatient recommend pt take and extra dose of her home PO 20mg lasix each day for the next 3 days recommend follow up w/ funds transfer clerk Dr Emerson in the next week or two to discuss heart failure management Return to ED if: develop fevers, develop chest pains, develop blurry vision or mental status changes 02/08/24 01:13 will add potassium supplement PO at home for the next 4 days Blood Culture(s) Obtained: No Antibiotics given: No Counseled pt/family regarding: lab results, diagnosis, need for follow-up, rad results Medical Desision Making - Diagnostic Testing Diagnostic test were ordered, analyzed, and reviewed by me: Yes Radiological Interpretation: Interpreted by me, Reviewed by me, Teleradiologist Report - Risk of complications Minimal Risk: Minimal risk of morbidity - Departure Departure Disposition: Home Clinical Impression: Elevated brain natriuretic peptide (BNP) level, Orthopnea Acute exacerbation of CHF (congestive heart failure) Qualifiers: Heart failure type: unspecified Qualified Code(s): I50.9 - Heart failure, unspecified Condition: Stable Critical Care Time: No Referrals: KERWIN HANDY [Primary Care Provider] - Follow up/PCP as directed Instructions: Heart Failure Additional Instructions: plan to dc home w/ close PCP follow up w/ Dr Handy next week Instructed to continue antibiotics prescribed by PCP (clindamycin) outpatient recommend pt take and extra dose of her home PO 20mg lasix each day for the next 3 days recommend follow up w/ funds transfer clerk Dr Emerson in the next week or two to discuss heart failure management Return to ED if: develop fevers, develop chest pains, develop blurry vision or mental status changes Prescriptions: Potassium Chloride 20 meq PO DAILY #5 tablet
[2024-02-07 22:54] LABS: Absolute Neutrophil Ct (ANC) 9.85 x10^3/uL (1.4-6.9); BASOPHIL % 0.2 % (0.0-0.4); Basophil (Absolute #) 0.02 x10^3/uL (0-0.4); Eosinophil % 0.1 % (0.00-5.0); Eosinophil (Absolute #) 0.01 x10^3/uL (0-0.5); Hemoglobin 13.8 g/dL (12.0-16.0); IMMATURE GRAN # 0.04 x10^3u/L (0.00-0.03); IMMATURE GRAN % 0.3 % (0.00-0.4); Lymphocyte (Absolute #) 1.25 x10^3/uL (1.0-4.6); Lymphocytes % 10.7 % (24.0-44.0); Mean Cell Volume 92.4 fL (78-100); Mean Corpuscular Hemoglobin 32.7 pg (26-32); Mean Corpuscular Hgb Concent. 35.4 g/dL (32-36); Mean Platelet Volume 10.3 fL (7.5-11.0); Monocyte (Absolute #) 0.56 x10^3/uL (0.0-1.3); Monocytes % 4.8 % (0.0-12.0); Neutrophil % 83.9 % (36.0-66.0); Platelet Count 277 x10^3/uL (150-450); Red Blood Count 4.22 x10^6/uL (4.1-5.4); Red Cell Distribution Width 12.2 % (11.5-14.0); White Blood Count 11.7 x10^3/uL (4.0-10.5)
[2024-02-07 23:18] LABS: ALBUMIN 4.5 g/dL (3.5-5.0); ANION GAP 11.8 MEQ/L (5-15); BILIRUBIN,TOTAL 0.5 mg/dL (0.2-1.3); Calcium 9.6 mg/dL (8.4-10.2); Creatinine 1 0.95 mg/dL (0.52-1.04); EST GLOMERULAR FILTRATION RATE 66.9 ML/MIN; Potassium 3.1 mmol/L (3.5-5.1); Total Protein 7.2 g/dL (6.3-8.2)
[2024-02-07] MEDS ORDERED: Klor Con ONE (23:47)
[2024-02-07] MEDS ORDERED: Lasix 40 MG/4 ML ONE (23:47)
[2024-02-07 23:51] LABS: INFLUENZA A NEGATIVE (NEGATIVE); INFLUENZA B NEGATIVE (NEGATIVE); RESPIRATORY SYNCTIAL VIRUS NEGATIVE (NEGATIVE); SARS-CoV-2 Xpert Express NEGATIVE (NEGATIVE)
[2024-02-07] MEDS: Klor Con PO ONE (23:51)
[2024-02-07] MEDS: Lasix 40 MG/4 ML IV ONE (23:52)
[2024-02-08 01:03] VITALS: BP 157/95; PULSE 90; RESP 22
--- NOTE | 2024-02-08 01:06 | XRAY ---
CLINICAL HISTORY: sob COMPARISON: None. TECHNIQUE: Contiguous axial CT images of the chest were acquired without IV contrast. Coronal and sagittal reconstructions were obtained. "One of the following dose reduction techniques was utilized for this exam: Automated exposure control, adjustment of the mA and/or kV according to patient size, and use of iterative reconstruction." FINDINGS: Atelectatic bands seen at the right upper lung lobe. Linear calcification seen along the right oblique fissure. Thin atelectatic bands seen at both lower lung lobes. The scanned pulmonary parenchyma shows no definite consolidative lesions. No free or encysted pleural effusion. Heart size is normal, and there is no pericardial effusion. No pathologically enlarged mediastinal, hilar or axillary lymph node identified. Port-A-Cath identified with its tip in the distal third of the superior vena cava. Calcified nodule is identified in the outer half of right breast measuring 8 x 12 mm. There is no definite mass lesion in the chest wall. Mild spondylotic changes in the visualized spine. Complete loss of disc space at T10-T11 level giving a block vertebral appearance. Scanned upper abdomen is unremarkable. IMPRESSION: 1. No definite consolidative lesions. 2. Atelectatic bands seen at right upper and both lower lung lobes. 3. Linear calcification seen along the right oblique fissure. 4. Rest of the findings are as stated above. Electronically Signed by: Letty Ruggiero MD. (02/08/2024 01:02:50 EDT)
[2024-02-08 01:14] VITALS: O2SAT 97
--- NOTE | 2024-02-08 07:22 | XRAY ---
Indication: Short of breath. Comparison: April 30, 2023 PA/lateral chest again hyperinflated with minimal left base fibrosis/scarring. No focal infiltrate, consolidation, or large effusion. Heart not enlarged again with tortuous descending aorta and right Port-A-Cath. Bony thorax intact again with osteopenia and mild degenerative changes. Impression: Continued nonacute hyperinflated chest with chronic features.
== END 2024-02-08 01:28 | disposition home or self-care (01) ==
LOC: ED 22:11
DX: R79.89 Other specified abnormal findings of blood chemistry (principal); R06.01 Orthopnea; I11.0 Hypertensive heart disease with heart failure; I50.9 Heart failure, unspecified; R06.02 Shortness of breath; R07.9 Chest pain, unspecified; Z79.899 Other long term (current) drug therapy
CPT/HCPCS: 0241U; 36000; 36415; 71046; 71250; 80053; 83605; 83880; 84145; 84484; 85025; 85379; 93005; 96374; 99284; J1940; A9270-GY

== ENCOUNTER 2024-09-22 13:32 | Observation (INO) | payer OTHER ==
[2024-09-22 14:27] LABS: Appearance Cloudy (Clear); Bacteria None Seen /HPF (None Seen); Bilirubin Negative (Negative); Blood Negative (Negative); Epithelial Cells None Seen /HPF (None Seen); Glucose, Urine Negative (Negative); Hyaline Casts NONE SEEN /LPF (0-2); Ketones Negative (Negative); Leukocyte Esterase Negative (Negative); Nitrite Negative (Negative); Protein,Urine Dip Negative (Negative); RBC 0-2 /HPF (0-5); Specific Gravity 1.015 (1.005-1.030); Urobilinogen 0.2 mg/dL (0.2); WBC 0-2 /HPF (0-5)
--- NOTE | 2024-09-22 14:53 | ERPHSYRPT ---
- History of Present Illness Time Seen by Provider: 09/22/24 14:35 Source: patient Exam Limitations: no limitations Patient Subjective Stated Complaint: C/O left lower abdominal pain that started yesterday evening. Denies N/V and diarrhea. Triage Nursing Assessment: Patient ambulated back to ER. Patient holding/gaurding her left lower abdomen during assessment. No SOB. Skin tone normal. Patient is alert and oriented. Physician History: 64-year-old female presents to our ED for evaluation of suprapubic and left lower quadrant pain that started yesterday evening. Patient states the pain awoke her from her sleep at night. Patient initially thought it was a urinary tract infection however felt that it was something "more serious". No trauma. No fever. No nausea vomiting or diaphoresis. No diarrhea. Pain described as an ache that is localized. No radiation. Pain worse with movement and palpation. Pain improved with rest. Patient otherwise feels well. Patient declined pain medication. She voices no other complaints or concerns at this time. Portions of this note were created with voice recognition technology. There may be grammatical, spelling, punctuation or sound alike errors Timing/Duration: today Severity: moderate Modifying Factors: Improves With: nothing Associated Symptoms: denies symptoms Allergies/Adverse Reactions: amoxicillin trihydrate [From Augmentin] Allergy (Verified 02/07/24 22:13) Nausea and Vomiting Iodinated Contrast Media [Iodinated Contrast Media - IV Dye] Allergy (Verified 02/07/24 22:13) Penicillins Allergy (Verified 02/07/24 22:13) reports she can take some penicillins can not take augmentin Sulfa (Sulfonamide Antibiotics) Allergy (Verified 02/07/24 22:13) Home Medications: Cyclobenzaprine HCl 10 mg [Cyclobenzaprine 10 MG] 0.5 tab PO TID PRN 06/12/19 [History] Amitriptyline HCl 50 mg PO DAILY 02/07/21 [History] Furosemide 20 mg [Lasix 20 mg] 20 mg PO DAILY 05/03/23 [History] Albuterol 2.5 mg/0.5 ml [PROVENTIL Solution 2.5 MG/0.5 ML] 2.5 mg IH Q4- 6HPRN PRN 07/23/23 [History] Albuterol 8 gm Mdi Hfa [Ventolin Hfa MDI] 2 puffs IH BID PRN 07/23/23 [History] Famotidine 20 mg [Pepcid 20 MG] 20 mg PO DAILY 07/23/23 [History] Omeprazole 40 mg PO DAILY 07/23/23 [History] Tramadol HCl 50 mg [Ultram 50 mg] 50 mg PO Q4-6HPRN PRN 07/23/23 [History] Losartan Potassium 50 mg [Cozaar 50 MG] 50 mg PO DAILY 02/07/24 [History] Evolocumab [Repatha Sureclick] 140 mg SQ DIRECTIONS UNKNOWN 09/22/24 [History] Hx Tetanus, Diphtheria Vaccination/Date Given: No Hx Influenza Vaccination/Date Given: Yes Hx Pneumococcal Vaccination/Date Given: Yes Immunizations Up to Date: Yes Travel Risk - International Travel Have you traveled outside of the country in past 3 weeks: No - Emerging Infectious Disease Are you exhibiting symptoms associated with any current EIDs: Yes Symptoms: Abdominal Pain - Review of Systems Constitutional: No Symptoms, No Fever, No Chills Eyes: No Symptoms Ears, Nose, & Throat: No Symptoms Respiratory: No Symptoms, No Cough, No Dyspnea Cardiac: No Symptoms, No Chest Pain, No Edema, No Syncope Abdominal/Gastrointestinal: No Symptoms, No Abdominal Pain, No Nausea, No Vomiting, No Diarrhea Genitourinary Symptoms: No Symptoms, No Dysuria Musculoskeletal: No Symptoms, No Back Pain, No Neck Pain Skin: No Symptoms, No Rash Neurological: No Symptoms, No Dizziness, No Focal Weakness, No Sensory Changes Psychological: No Symptoms Endocrine: No Symptoms Hematologic/Lymphatic: No Symptoms Immunological/Allergic: No Symptoms All Other Systems: Reviewed and Negative - Past Medical History Pertinent Past Medical History: Yes Neurological History: No Pertinent History ENT History: No Pertinent History Cardiac History: Congestive Heart Failure, Coronary Artery Disease, Hypertension, Myocardial Infarction (ID) Respiratory History: COPD, Emphysema, Lung Cancer Endocrine Medical History: Hypothyroidism Musculoskeletal History: Osteoarthritis GI Medical History: No Pertinent History History: No Pertinent History Psycho-Social History: No Pertinent History Female Reproductive Disorders: No Pertinent History Other Medical History: CARDIOMYOPOTHY, ID X3, - Past Surgical History Past Surgical History: Yes Neuro Surgical History: No Pertinent History Cardiac: No Pertinent History Respiratory: Lobectomy Gastrointestinal: Cholecystectomy Musculoskeletal: Orthopedic Surgery Female Surgical History: Section, Hysterectomy Other Surgical History: R HIP SURG. left hand and wrist - Social History Smoking Status: Former smoker Exposure to second hand smoke: No Drug Use: none Patient Lives Alone: Yes - Social Determinants of Health Will the patient participate in the screening: Yes Do you worry about a steady place to live?: No Do you have any problems with any of the following?: No known problems In the past 12 months,have you had to go without utilities?: No Transportation Issues: No Has anyone in your support network made you feel unsafe?: No Have you or anyone in your house had to go without enough: No - Nursing Vital Signs Nursing Vital Signs: Initial Vital Signs O2 Sat by Pulse Oximetry 98 09/22/24 14:22 Pain Scale Pain Intensity 5 - Physical Exam General Appearance: no apparent distress, alert Eye Exam: PERRL/EOMI, eyes nml inspection Ears, Nose, Throat Exam: normal ENT inspection, TMs normal, pharynx normal, moist mucous membranes Neck Exam: normal inspection, non-tender, supple, full range of motion Respiratory Exam: normal breath sounds, lungs clear, No respiratory distress Cardiovascular Exam: regular rate/rhythm, normal heart sounds, normal peripheral pulses Gastrointestinal/Abdomen Exam: soft, normal bowel sounds, tenderness, other (Sup rapubic and left lower quadrant tenderness), No mass Back Exam: normal inspection, normal range of motion, No CVA tenderness, No vertebral tenderness Extremity Exam: normal inspection, normal range of motion, pelvis stable Neurologic Exam: alert, oriented x 3, cooperative, normal mood/affect, nml cerebellar function, nml station & gait, sensation nml, No motor deficits Skin Exam: normal color, warm, dry, No rash Lymphatic Exam: No adenopathy SpO2 Interpretation: normal SpO2: 98 O2 Delivery: Room Air - Course Nursing assessment & vital signs reviewed: Yes - CT Exams Abdomen/Pelvis CT Interpretation: Discussed w/radiologist (CT abdomen pelvis without contrast negative for acute findings) Ordered Tests: Active Orders 24 hr Category Date Time Status IV Insertion STAT Care 09/22/24 14:49 Active ABDOMEN AND PELVIS W/0 CONTRAS [CT] Stat Exams 09/22/24 14:49 Completed CBC W DIFF Stat Lab 09/22/24 15:00 Completed CMP Stat Lab 09/22/24 15:00 Completed TROPONIN Q4H Lab 09/22/24 15:00 Completed TROPONIN Q4H Lab 09/22/24 19:00 Ordered TROPONIN Q4H Lab 09/22/24 23:00 Ordered UA W/RFX UR CULTURE Stat Lab 09/22/24 14:22 Completed Transfer Order Routine Transfer 09/22/24 Ordered Medication Summary Generic Name Dose Route Start Last Admin Trade Name Freq PRN Reason Stop Dose Admin Sodium Chloride 1,000 mls @ 100 mls/hr 09/22/24 15:00 09/22/24 15:37 Sodium Chloride 0.9% 1000 Ml IV 10/22/24 14:59 100 mls/hr .Q10H JANIE Administration Discontinued Medications Generic Name Dose Route Start Last Admin Trade Name Freq PRN Reason Stop Dose Admin Morphine Sulfate 4 mg 09/22/24 16:39 09/22/24 16:44 Morphine Sulfate 4 Mg/Ml Injection IV 09/22/24 16:40 4 mg STAT ONE Administration Morphine Sulfate Confirm 09/22/24 16:40 Morphine Sulfate 4 Mg/Ml Injection Administered 09/22/24 16:41 Dose 4 mg .ROUTE .STK-MED ONE Morphine Sulfate 2 mg 09/22/24 17:42 09/22/24 17:49 Morphine Sulfate 2 Mg/Ml Inj IV 09/22/24 17:43 2 mg STAT ONE Administration Morphine Sulfate Confirm 09/22/24 17:45 Morphine Sulfate 2 Mg/Ml Inj Administered 09/22/24 17:46 Dose 2 mg .ROUTE .STK-MED ONE Ondansetron HCl 4 mg 09/22/24 16:39 09/22/24 16:42 Ondansetron Hcl 4 Mg/2 Ml Vial IV 09/22/24 16:40 4 mg STAT ONE Administration Ondansetron HCl Confirm 09/22/24 16:40 Ondansetron Hcl 4 Mg/2 Ml Vial Administered 09/22/24 16:41 Dose 4 mg .ROUTE .STK-MED ONE Potassium Chloride 40 meq 09/22/24 16:29 09/22/24 16:37 Potassium Chloride Tab 10 Meq Tab PO 09/22/24 16:30 40 meq STAT ONE Administration Potassium Chloride Confirm 09/22/24 16:36 Potassium Chloride Tab 10 Meq Tab Administered 09/22/24 16:37 Dose 40 meq .ROUTE .STK-MED ONE Lab/Rad Data: Laboratory Result Diagrams 09/22/24 15:00 09/22/24 15:00 Laboratory Results 09/22/24 09/22/24 09/22/24 Range/Units 15:00 15:00 15:00 WBC 6.3 (3.98-10.04) x10^3/uL RBC 4.35 (3.93-5.22) x10^6/uL Hgb 13.7 (11.2-15.7) g/dL Hct 39.0 (34.1-44.9) % MCV 89.7 (79.4-94.8) fL MCH 31.5 (25.6-32.2) pg MCHC 35.1 (32.2-35.5) g/dL RDW 12.0 (11.7-14.4) % Plt Count 286 (182-369) x10^3/uL MPV 9.9 (9.4-12.3) fL Gran % 63.2 (34.0-71.1) % Immature Gran % (Auto) 0.2 (0.001-0.429) % Nucleat RBC Rel Count 0.0 (0.00-0.2) % Eos # (Auto) 0.23 (0.04-0.36) x10^3/uL Immature Gran # (Auto) 0.01 (0.001-0.031) x10^3u/L Absolute Lymphs (auto) 1.58 (1.18-3.74) x10^3/uL Absolute Monos (auto) 0.42 (0.24-0.86) x10^3/uL Absolute Nucleated RBC 0.00 (0.00-0.012) x10^3u/L Lymphocytes % 25.2 (19.3-51.7) % Monocytes % 6.7 (4.7-12.5) % Eosinophils % 3.7 (0.7-5.8) % Basophils % 1.0 (0.1-1.2) % Absolute Granulocytes 3.97 (1.56-6.13) x10^3/uL Basophils # 0.06 (0.01-0.08) x10^3/uL Sodium 139 (135-145) mmol/L Potassium 3.2 L (3.5-5.1) mmol/L Chloride 105 (98-107) mmol/L Carbon Dioxide 30 (22-30) mmol/L Anion Gap 8.3 (5-15) MEQ/L BUN 11 (7-17) mg/dL Creatinine 0.75 (0.52-1.04) mg/dL Estimated GFR 88.3 ML/MIN Glucose 85 (74-106) mg/dL Calcium 9.6 (8.4-10.2) mg/dL Total Bilirubin 0.60 (0.2-1.3) mg/dL AST 23 (14-36) U/L ALT 16 (0-35) U/L Alkaline Phosphatase 87 (38-126) U/L Troponin I < 0.012 (0.000-0.033) ng/mL Serum Total Protein 6.4 (6.3-8.2) g/dL Albumin 4.1 (3.5-5.0) g/dL Urine Color (Yellow) Urine Appearance (Clear) Urine pH (4.6-8.0) Ur Specific [place] (1.005-1.030) Urine Protein (Negative) Urine Glucose (UA) (Negative) mg/dL Urine Ketones (Negative) Urine Blood (Negative) Urine Nitrite (Negative) Urine Bilirubin (Negative) Urine Urobilinogen (0.2) mg/dL Ur Leukocyte Esterase (Negative) U Hyaline Cast (Auto) (0-2) /LPF Urine Microscopic RBC (0-5) /HPF Urine Microscopic WBC (0-5) /HPF Ur Epithelial Cells (None Seen) /HPF Urine Bacteria (None Seen) /HPF Urine Culture Reflexed (NO) 09/22/24 Range/Units 14:22 WBC (3.98-10.04) x10^3/uL RBC (3.93-5.22) x10^6/uL Hgb (11.2-15.7) g/dL Hct (34.1-44.9) % MCV (79.4-94.8) fL MCH (25.6-32.2) pg MCHC (32.2-35.5) g/dL RDW (11.7-14.4) % Plt Count (182-369) x10^3/uL MPV (9.4-12.3) fL Gran % (34.0-71.1) % Immature Gran % (Auto) (0.001-0.429) % Nucleat RBC Rel Count (0.00-0.2) % Eos # (Auto) (0.04-0.36) x10^3/uL Immature Gran # (Auto) (0.001-0.031) x10^3u/L Absolute Lymphs (auto) (1.18-3.74) x10^3/uL Absolute Monos (auto) (0.24-0.86) x10^3/uL Absolute Nucleated RBC (0.00-0.012) x10^3u/L Lymphocytes % (19.3-51.7) % Monocytes % (4.7-12.5) % Eosinophils % (0.7-5.8) % Basophils % (0.1-1.2) % Absolute Granulocytes (1.56-6.13) x10^3/uL Basophils # (0.01-0.08) x10^3/uL Sodium (135-145) mmol/L Potassium (3.5-5.1) mmol/L Chloride (98-107) mmol/L Carbon Dioxide (22-30) mmol/L Anion Gap (5-15) MEQ/L BUN (7-17) mg/dL Creatinine (0.52-1.04) mg/dL Estimated GFR ML/MIN Glucose (74-106) mg/dL Calcium (8.4-10.2) mg/dL Total Bilirubin (0.2-1.3) mg/dL AST (14-36) U/L ALT (0-35) U/L Alkaline Phosphatase (38-126) U/L Troponin I (0.000-0.033) ng/mL Serum Total Protein (6.3-8.2) g/dL Albumin (3.5-5.0) g/dL Urine Color Yellow (Yellow) Urine Appearance Cloudy A (Clear) Urine pH 6.0 (4.6-8.0) Ur Specific [place] 1.015 (1.005-1.030) Urine Protein Negative (Negative) Urine Glucose (UA) Negative (Negative) mg/dL Urine Ketones Negative (Negative) Urine Blood Negative (Negative) Urine Nitrite Negative (Negative) Urine Bilirubin Negative (Negative) Urine Urobilinogen 0.2 (0.2) mg/dL Ur Leukocyte Esterase Negative (Negative) U Hyaline Cast (Auto) NONE SEEN (0-2) /LPF Urine Microscopic RBC 0-2 (0-5) /HPF Urine Microscopic WBC 0-2 (0-5) /HPF Ur Epithelial Cells None Seen (None Seen) /HPF Urine Bacteria None Seen (None Seen) /HPF Urine Culture Reflexed NO (NO) - Progress Progress: improved Progress Note: 64-year-old female presents to our ED for evaluation of left lower quadrant and suprapubic pain. Laboratory workup reveals a potassium of 3.2. Oral potassium replacement administered. UA negative for UTI. CT abdomen pelvis did not explain patient symptomology. Patient had a total hysterectomy as she does not have a uterus or ovaries. Patient received morphine for pain control. The initial dose of morphine improved patient's pain. Patient requested a second dose of the pain and returned. Patient received second dose of morphine. Pain improved but not resolved. Patient states that she lives alone and does not feel comfortable going home with the degree of pain and the amount of morphine she has received. Patient requesting admission. She communicated with her family family is aware that patient will be staying in the hospital for observation overnight. Vitals are stable. Case discussed with hospitalist who accepts admission to observation at approximately 5:45 PM. Plan of care discussed with patient. She agrees to admission at [facility] for further evaluation and treatment. Portions of this note were created with voice recognition technology. There may be grammatical, spelling, punctuation or sound alike errors Complexity of problem addressed is moderate acute complicated no critical care time. Complexity of data reviewed and analyzed is extensive. Test ordered chest reviewed results analyzed and correlated clinically with history and physical exam. Management discussed with hospitalist who excepts admission to observation overnight. Risk of complication and or risk of morbidity/mortality of patient management is high. Patient requires hospitalization for further evaluation and treatment. Vital stable. Time spent to discharge patient approximately 20 minutes. Plan of care established for shared decision making. No social determinants of health present to impede follow-up. Portions of this note were created with voice recognition technology. There may be grammatical, spelling, punctuation or sound alike errors 09/22/24 17:59 Counseled pt/family regarding: lab results, diagnosis, rad results - Departure Departure Disposition: Home Clinical Impression: Hypokalemia, Intractable abdominal pain Condition: Stable Critical Care Time: No Referrals: KERWIN KWOK [Primary Care Provider] - Follow up/PCP as directed Additional Instructions: Discharge/Care Plan ELVA VANG was seen on 09/22/24 in the Emergency Room. The patient was counseled regarding Diagnosis,Lab results, Imaging studies, need for follow up a nd when to return to the Emergency Room. Prescriptions given: Discharge Note I have spoken with the patient and/or caregivers. I have explained the patient's condition, diagnosis and treatment plan based on the information available to me at this time. I have answered the patient's and/or caregiver's questions and addressed any concerns. The patient and/or caregivers have as good understanding of the patient's diagnosis, condition and treatment plan as can be expected at this point. The vital signs have been stable. The patient's condition is stable and appropriate for discharge from the emergency department. The patient will pursue further outpatient evaluation with the primary care physician or other designated or consulting physician as outlined in the discharge instructions. The patient and/or caregivers are agreeable to this plan of care and follow-up instructions have been explained in detail. The patient and/or caregivers have received these instruction. The patient/and or caregivers are aware that any significant change in condition or worsening of symptoms should prompt an immediate return to this or the closest emergency department or call 911.
[2024-09-22 15:10] LABS: Absolute Neutrophil Ct (ANC) 3.97 x10^3/uL (1.56-6.13); Basophil (Absolute #) 0.06 x10^3/uL (0.01-0.08); Eosinophil % 3.7 % (0.7-5.8); Eosinophil (Absolute #) 0.23 x10^3/uL (0.04-0.36); Hemoglobin 13.7 g/dL (11.2-15.7); IMMATURE GRAN # 0.01 x10^3u/L (0.001-0.031); IMMATURE GRAN % 0.2 % (0.001-0.429); Lymphocyte (Absolute #) 1.58 x10^3/uL (1.18-3.74); Lymphocytes % 25.2 % (19.3-51.7); Mean Cell Volume 89.7 fL (79.4-94.8); Mean Corpuscular Hemoglobin 31.5 pg (25.6-32.2); Mean Corpuscular Hgb Concent. 35.1 g/dL (32.2-35.5); Mean Platelet Volume 9.9 fL (9.4-12.3); Monocyte (Absolute #) 0.42 x10^3/uL (0.24-0.86); Monocytes % 6.7 % (4.7-12.5); Neutrophil % 63.2 % (34.0-71.1); Platelet Count 286 x10^3/uL (182-369); Red Blood Count 4.35 x10^6/uL (3.93-5.22); White Blood Count 6.3 x10^3/uL (3.98-10.04)
[2024-09-22 15:24] LABS: ALBUMIN 4.1 g/dL (3.5-5.0); ANION GAP 8.3 MEQ/L (5-15); BILIRUBIN,TOTAL 0.6 mg/dL (0.2-1.3); Calcium 9.6 mg/dL (8.4-10.2); Creatinine 1 0.75 mg/dL (0.52-1.04); EST GLOMERULAR FILTRATION RATE 88.3 ML/MIN; Potassium 3.2 mmol/L (3.5-5.1); Total Protein 6.4 g/dL (6.3-8.2)
[2024-09-22] MEDS ORDERED: Sodium Chloride 0.9% 1000 ML 1,000 ML ONE (15:36)
[2024-09-22] MEDS: Sodium Chloride 0.9% 1000 ML 1,000 ML IV SCH (15:37)
--- NOTE | 2024-09-22 16:04 | XRAY ---
Indication: Lower abdomen pain. Multiple contiguous axial images obtained through the abdomen and pelvis without contrast. Comparison: None Lung bases demonstrates minimal bibasilar subsegmental atelectasis/scarring. No infiltrate or effusion. Heart not enlarged. Noncontrasted stomach and bowel loops appear nonobstructed with normal appendix. Cholecystectomy and hysterectomy. No free fluid/air. Remaining liver, pancreas, spleen, adrenal glands, kidneys, ureters, and bladder are unremarkable for noncontrast exam. Mild scattered aortoiliac calcifications without AAA. Osseous structures intact with osteopenia, mild/moderate degenerative changes throughout spine, mild dextroscoliosis centered at L2, old proximal right femur fracture with incompletely visualized orthopedic hardware, and old left inferior pubic ramus fracture. Impression: 1. Chronic findings including arteriosclerotic disease and chronic bony findings. 2. Remaining CT abdomen/pelvis without contrast exam is negative.
[2024-09-22] MEDS ORDERED: Klor Con ONE (16:36)
[2024-09-22] MEDS: Klor Con PO ONE (16:37)
[2024-09-22] MEDS ORDERED: Zofran 4 MG/2 ML VIAL ONE (16:40)
[2024-09-22] MEDS ORDERED: MORPHINE SULFATE 4 MG INJ ONE (16:40)
[2024-09-22] MEDS: Zofran 4 MG/2 ML VIAL IV ONE (16:42)
[2024-09-22] MEDS: MORPHINE SULFATE 4 MG INJ IV ONE (16:44)
[2024-09-22] MEDS ORDERED: MORPHINE SULFATE 2 MG INJ ONE (17:45)
[2024-09-22] MEDS: MORPHINE SULFATE 2 MG INJ IV ONE (17:49)
[2024-09-22] MEDS ORDERED: PROVENTIL Solution 2.5 MG/0.5 ML IH PRN (20:51)
[2024-09-22] MEDS ORDERED: Cyclobenzaprine 10 MG PO PRN (20:51)
--- NOTE | 2024-09-22 20:56 | PCM.HP ---
History of Present Illness - Chief Complaint Chief Complaint: Intractable abdominal pain History of Present Illness: 64F presents with suprapubic pain that started yesterday evening. Denies nausea, vomiting, fever, diarrhea, constipation. Patient declined pain medications in the ED. CT A/P done in the ED was unremarkable. Lab work and UA was also unremarkable. Patient admitted by daytime team for overnight observation. - Review of Systems Constitutional: No Fever, No Chills Eyes: No Symptoms Ears, Nose, & Throat: No Symptoms Respiratory: No Cough, No Short Of Breath Cardiac: No Chest Pain, No Edema, No Syncope Abdominal/Gastrointestinal: No Abdominal Pain, No Nausea, No Vomiting, No Diarrhea Genitourinary Symptoms: No Dysuria Musculoskeletal: No Back Pain, No Neck Pain Skin: No Rash Neurological: No Dizziness, No Focal Weakness, No Sensory Changes Psychological: No Symptoms Endocrine: No Symptoms Hematologic/Lymphatic: No Symptoms Immunological/Allergic: No Symptoms Medications & Allergies Home Medications: Home Medication List Cyclobenzaprine HCl 10 mg [Cyclobenzaprine 10 MG] 0.5 tab PO TID PRN 06/12/19 [History Confirmed 09/22/24] Amitriptyline HCl 50 mg PO DAILY 02/07/21 [History Confirmed 09/22/24] Furosemide 20 mg [Lasix 20 mg] 20 mg PO DAILY 05/03/23 [History Confirmed 09/22/24] Albuterol 2.5 mg/0.5 ml [PROVENTIL Solution 2.5 MG/0.5 ML] 2.5 mg IH Q4- 6HPRN PRN 07/23/23 [History Confirmed 09/22/24] Albuterol 8 gm Mdi Hfa [Ventolin Hfa MDI] 2 puffs IH BID PRN 07/23/23 [History Confirmed 09/22/24] Famotidine 20 mg [Pepcid 20 MG] 20 mg PO DAILY 07/23/23 [History Confirmed 09/22/24] Omeprazole 40 mg PO DAILY 07/23/23 [History Confirmed 09/22/24] Tramadol HCl 50 mg [Ultram 50 mg] 50 mg PO Q4-6HPRN PRN 07/23/23 [History Confirmed 09/22/24] Losartan Potassium 50 mg [Cozaar 50 MG] 50 mg PO DAILY 02/07/24 [History Confirmed 09/22/24] Evolocumab [Repatha Sureclick] 140 mg SQ DIRECTIONS UNKNOWN 09/22/24 [History Confirmed 09/22/24] Allergies/Adverse Reactions: Allergies Allergy/AdvReac Type Severity Reaction Status Date / Time amoxicillin trihydrate Allergy Nausea and Verified 02/07/24 22:13 [From Augmentin] Vomiting Iodinated Contrast Media Allergy Verified 02/07/24 22:13 [Iodinated Contrast Media - IV Dye] Penicillins Allergy Verified 02/07/24 22:13 Sulfa (Sulfonamide Allergy Verified 02/07/24 22:13 Antibiotics) - Past Medical History Past Medical History: Yes Neurological History: No Pertinent History ENT History: No Pertinent History Cardiac History: Congestive Heart Failure, Coronary Artery Disease, Hypertension, Myocardial Infarction ([place]) Respiratory History: COPD, Emphysema, Lung Cancer Endocrine Medical History: Hypothyroidism Musculoskelatal History: Osteoarthritis GI Medical History: No Pertinent History History: No Pertinent History Pyscho-Social History: No Pertinent History Reproductive Disorders: No Pertinent History Comment: CARDIOMYOPOTHY, [place] X3, - Past Surgical History Past Surgical History: Yes Neuro Surgical History: No Pertinent History Cardiac History: No Pertinent History Respiratory Surgery: Lobectomy GI Surgical History: Cholecystectomy Musculskeletal Surgical Hx: Orthopedic Surgery Female Surgical History: Section, Hysterectomy Other Surgical History: R HIP SURG. left hand and wrist - Social History Smoking Status: Former smoker Exposure to second hand smoke: No Alcohol: None Drug Use: none - Social Determinants of Health Will the patient participate in the screening: Yes Do you worry about a steady place to live?: No Do you have any problems with any of the following?: No known problems In the past 12 months,have you had to go without utilities?: No Have you or anyone in your house had to go without enough: No Transportation Issues: No Has anyone in your support network made you feel unsafe?: No Does the patient want assistance with any of the above?: No - Physical Exam Vital Signs: Vital Signs - 24 hr Temp Pulse Resp BP BP Pulse Ox 09/22/24 19:44 93 L 09/22/24 19:34 98.7 F 86 18 172/92 93 L 09/22/24 18:02 98 12/24/24 18:00 83 14 161/103 95 09/22/24 17:30 81 18 144/88 94 L 09/22/24 17:01 80 15 158/106 95 09/22/24 16:30 84 17 174/99 95 09/22/24 16:00 86 18 156/98 97 09/22/24 15:30 84 15 137/104 96 09/22/24 15:17 85 19 151/98 96 09/22/24 15:01 85 15 161/87 97 09/22/24 14:31 89 27 H 160/100 98 09/22/24 14:23 98.3 F 98 H 29 H 166/111 97 09/22/24 14:22 98 General Appearance: no apparent distress, alert Neurologic Exam: alert, oriented x 3, cooperative, normal mood/affect, nml cerebellar function, nml station & gait, sensation nml, No motor deficits Eye Exam: PERRL/EOMI, eyes nml inspection Ears, Nose, Throat Exam: normal ENT inspection, TMs normal, pharynx normal, moist mucous membranes Neck Exam: normal inspection, non-tender, supple, full range of motion Respiratory Exam: normal breath sounds, lungs clear, No respiratory distress Cardiovascular Exam: regular rate/rhythm, normal heart sounds, normal peripheral pulses Gastrointestinal/Abdomen Exam: soft, normal bowel sounds, No tenderness, No mass Back Exam: normal inspection, normal range of motion, No CVA tenderness, No vertebral tenderness Extremity Exam: normal inspection, normal range of motion, pelvis stable Skin Exam: normal color, warm, dry, No rash Lymphatic Exam: No adenopathy Results - Labs Lab/Micro Results: Lab Results-Last 24 Hours 09/22/24 09/22/24 09/22/24 Range/Units 14:22 15:00 15:00 WBC 6.3 (3.98-10.04) x10^3/uL RBC 4.35 (3.93-5.22) x10^6/uL Hgb 13.7 (11.2-15.7) g/dL Hct 39.0 (34.1-44.9) % MCV 89.7 (79.4-94.8) fL MCH 31.5 (25.6-32.2) pg MCHC 35.1 (32.2-35.5) g/dL RDW 12.0 (11.7-14.4) % Plt Count 286 (182-369) x10^3/uL MPV 9.9 (9.4-12.3) fL Gran % 63.2 (34.0-71.1) % Immature Gran % (Auto) 0.2 (0.001-0.429) % Nucleat RBC Rel Count 0.0 (0.00-0.2) % Eos # (Auto) 0.23 (0.04-0.36) x10^3/uL Immature Gran # (Auto) 0.01 (0.001-0.031) x10^3u/L Absolute Lymphs (auto) 1.58 (1.18-3.74) x10^3/uL Absolute Monos (auto) 0.42 (0.24-0.86) x10^3/uL Absolute Nucleated RBC 0.00 (0.00-0.012) x10^3u/L Lymphocytes % 25.2 (19.3-51.7) % Monocytes % 6.7 (4.7-12.5) % Eosinophils % 3.7 (0.7-5.8) % Basophils % 1.0 (0.1-1.2) % Absolute Granulocytes 3.97 (1.56-6.13) x10^3/uL Basophils # 0.06 (0.01-0.08) x10^3/uL Sodium 139 (135-145) mmol/L Potassium 3.2 L (3.5-5.1) mmol/L Chloride 105 (98-107) mmol/L Carbon Dioxide 30 (22-30) mmol/L Anion Gap 8.3 (5-15) MEQ/L BUN 11 (7-17) mg/dL Creatinine 0.75 (0.52-1.04) mg/dL Estimated GFR 88.3 ML/MIN Glucose 85 (74-106) mg/dL Calcium 9.6 (8.4-10.2) mg/dL Total Bilirubin 0.60 (0.2-1.3) mg/dL AST 23 (14-36) U/L ALT 16 (0-35) U/L Alkaline Phosphatase 87 (38-126) U/L Troponin I (0.000-0.033) ng/mL Serum Total Protein 6.4 (6.3-8.2) g/dL Albumin 4.1 (3.5-5.0) g/dL Urine Color Yellow (Yellow) Urine Appearance Cloudy A (Clear) Urine pH 6.0 (4.6-8.0) Ur Specific [place] 1.015 (1.005-1.030) Urine Protein Negative (Negative) Urine Glucose (UA) Negative (Negative) mg/dL Urine Ketones Negative (Negative) Urine Blood Negative (Negative) Urine Nitrite Negative (Negative) Urine Bilirubin Negative (Negative) Urine Urobilinogen 0.2 (0.2) mg/dL Ur Leukocyte Esterase Negative (Negative) U Hyaline Cast (Auto) NONE SEEN (0-2) /LPF Urine Microscopic RBC 0-2 (0-5) /HPF Urine Microscopic WBC 0-2 (0-5) /HPF Ur Epithelial Cells None Seen (None Seen) /HPF Urine Bacteria None Seen (None Seen) /HPF Urine Culture Reflexed NO (NO) 09/22/24 09/22/24 Range/Units 15:00 18:40 WBC (3.98-10.04) x10^3/uL RBC (3.93-5.22) x10^6/uL Hgb (11.2-15.7) g/dL Hct (34.1-44.9) % MCV (79.4-94.8) fL MCH (25.6-32.2) pg MCHC (32.2-35.5) g/dL RDW (11.7-14.4) % Plt Count (182-369) x10^3/uL MPV (9.4-12.3) fL Gran % (34.0-71.1) % Immature Gran % (Auto) (0.001-0.429) % Nucleat RBC Rel Count (0.00-0.2) % Eos # (Auto) (0.04-0.36) x10^3/uL Immature Gran # (Auto) (0.001-0.031) x10^3u/L Absolute Lymphs (auto) (1.18-3.74) x10^3/uL Absolute Monos (auto) (0.24-0.86) x10^3/uL Absolute Nucleated RBC (0.00-0.012) x10^3u/L Lymphocytes % (19.3-51.7) % Monocytes % (4.7-12.5) % Eosinophils % (0.7-5.8) % Basophils % (0.1-1.2) % Absolute Granulocytes (1.56-6.13) x10^3/uL Basophils # (0.01-0.08) x10^3/uL Sodium (135-145) mmol/L Potassium (3.5-5.1) mmol/L Chloride (98-107) mmol/L Carbon Dioxide (22-30) mmol/L Anion Gap (5-15) MEQ/L BUN (7-17) mg/dL Creatinine (0.52-1.04) mg/dL Estimated GFR ML/MIN Glucose (74-106) mg/dL Calcium (8.4-10.2) mg/dL Total Bilirubin (0.2-1.3) mg/dL AST (14-36) U/L ALT (0-35) U/L Alkaline Phosphatase (38-126) U/L Troponin I < 0.012 < 0.012 (0.000-0.033) ng/mL Serum Total Protein (6.3-8.2) g/dL Albumin (3.5-5.0) g/dL Urine Color (Yellow) Urine Appearance (Clear) Urine pH (4.6-8.0) Ur Specific [place] (1.005-1.030) Urine Protein (Negative) Urine Glucose (UA) (Negative) mg/dL Urine Ketones (Negative) Urine Blood (Negative) Urine Nitrite (Negative) Urine Bilirubin (Negative) Urine Urobilinogen (0.2) mg/dL Ur Leukocyte Esterase (Negative) U Hyaline Cast (Auto) (0-2) /LPF Urine Microscopic RBC (0-5) /HPF Urine Microscopic WBC (0-5) /HPF Ur Epithelial Cells (None Seen) /HPF Urine Bacteria (None Seen) /HPF Urine Culture Reflexed (NO) - Radiology Impressions Radiology Exams & Impressions: Radiology Procedures Category Date Time Status ABDOMEN AND PELVIS W/0 CONTRAS [CT] Stat Exams 09/22/24 14:49 Completed Assessment/Plan (1) Intractable abdominal pain Current Visit: Yes Status: Acute Assessment & Plan: 1. Suprapubic pain, unclear etiology. Possible MSK. CT scan negative, labs WNL and negative UA. No nausea, vomiting or diarrhea, constipation. 2. Monitor overnight, likely d/c in the AM Code(s): R10.9 - UNSPECIFIED ABDOMINAL PAIN Telemedicine Encounter - Telemedicine Encounter Telemedicine Encounter: "The entirety of this encounter was performed via Telemedicine" This visit was performed using real-time audio and video connection between my location and thepatients locationwith the assistance of a surrogateat the patients location. Written or verbal consent was obtained from the patient/guardian to [facility] this [facility]. Any patient questions regarding the telemedicine interaction were answered.
[2024-09-22] MEDS ORDERED: Ventolin Hfa MDI IH SCH (21:00)
[2024-09-22] MEDS ORDERED: NON-FORMULARY ITEM (Evolocumab [Repatha Sureclick] 140 MG/ML Pen.Injctr) SQ SCH (21:00)
[2024-09-22] MEDS: MORPHINE SULFATE 4 MG INJ IV PRN (21:46)
[2024-09-22] MEDS ORDERED: VENTOLIN COMMON CANISTER IH PRN (22:37)
[2024-09-23] MEDS ORDERED: MEDICATION INTERVENTION MC SCH (07:45)
[2024-09-23] MEDS: Cozaar 50 MG PO SCH (09:18)
[2024-09-23] MEDS: Pepcid 20 MG PO SCH (09:18)
[2024-09-23] MEDS: Protonix 40MG Tablet PO SCH (09:18)
[2024-09-23] MEDS: LASIX 20 MG PO SCH (09:19)
[2024-09-23] MEDS ORDERED: AMITRIPTYLINE HCL 150 MG PO SCH (10:00)
[2024-09-23] MEDS ORDERED: NON-FORMULARY ITEM (Omeprazole [Omeprazole] 40 MG Capsule.Dr) PO SCH (10:00)
[2024-09-23] MEDS: Flagyl 500 MG PO SCH (12:11)
--- NOTE | 2024-09-23 13:20 | PCM.NOTE ---
Date and Time: 09/23/24 1540 Subjective Assessment: Patient admitted with abdominal pain. She has low abdominal cramping pain worse on the left side. Pain is improved due to pain meds but still present. No radiation of pain. No provocative or palliative factors. She does have some tenderness in LLQ. No fever. No change in bowels. No dysuria or hematuria. No chest pain or dyspnea or cough. - Review of Systems Constitutional: No Symptoms, Chills, No Fever Eyes: No Symptoms Ears, Nose, & Throat: No Symptoms Respiratory: No Symptoms, No Cough, No Short Of Breath Cardiac: No Symptoms, No Chest Pain, No Edema Abdominal/Gastrointestinal: Abdominal Pain, No Nausea, No Vomiting, No Diarrhea Genitourinary Symptoms: No Symptoms, No Dysuria, No Frequency, No Hematuria Musculoskeletal: No Symptoms Skin: No Symptoms Neurological: No Symptoms Psychological: No Symptoms Endocrine: No Symptoms Immunological/Allergic: No Symptoms All Other Systems: Reviewed and Negative Objective Exam General Appearance: mild distress Neurologic Exam: alert, oriented x 3, cooperative Skin Exam: normal color, warm, dry Eye Exam: PERRL, EOMI Ears, Nose, Throat Exam: normal ENT inspection Neck Exam: normal inspection Lymphatic Exam: No adenopathy Respiratory Exam: normal breath sounds Cardiovascular Exam: regular rate/rhythm, normal heart sounds Gastrointestinal/Abdomen Exam: soft, normal bowel sounds, tenderness, No mass Extremity Exam: normal inspection, normal range of motion Back Exam: normal inspection Pelvic Exam: deferred Rectal Exam: deferred Objective Data Vital Signs: Vital Signs - 24 hr Temp Pulse Resp BP BP Pulse Ox 09/23/24 11:00 97.0 F 84 16 132/79 96 09/23/24 08:08 81 16 97 09/23/24 07:00 97.8 F 81 16 149/83 93 L 09/23/24 03:00 97.1 F 77 18 136/75 94 L 09/22/24 23:35 97.2 F 93 H 18 138/75 93 L 09/22/24 21:13 84 16 93 L 09/22/24 20:00 98.7 F 84 16 172/92 93 L 09/22/24 19:44 93 L 09/22/24 19:34 98.7 F 86 18 172/92 93 L 09/22/24 18:02 98 09/22/24 18:00 83 14 161/103 95 09/22/24 17:30 81 18 144/88 94 L 09/22/24 17:01 80 15 158/106 95 09/22/24 16:30 84 17 174/99 95 09/22/24 16:00 86 18 156/98 97 09/22/24 15:30 84 15 137/104 96 09/22/24 15:17 85 19 151/98 96 09/22/24 15:01 85 15 161/87 97 09/22/24 14:31 89 27 H 160/100 98 09/22/24 14:23 98.3 F 98 H 29 H 166/111 97 09/22/24 14:22 98 Pain Assessment - Last Documented Pain Intensity 3 Pain Scale Used 0-10 Pain Scale Intake and Output: Intake & Output 09/21/24 09/22/24 09/23/24 09/24/24 11:59 11:59 11:59 11:59 Intake Total 360 240 Balance 360 240 Weight 72.9 kg Lab Results: Lab Results-Last 24 Hours 09/22/24 09/22/24 09/22/24 Range/Units 14:22 15:00 15:00 WBC 6.3 (3.98-10.04) x10^3/uL RBC 4.35 (3.93-5.22) x10^6/uL Hgb 13.7 (11.2-15.7) g/dL Hct 39.0 (34.1-44.9) % MCV 89.7 (79.4-94.8) fL MCH 31.5 (25.6-32.2) pg MCHC 35.1 (32.2-35.5) g/dL RDW 12.0 (11.7-14.4) % Plt Count 286 (182-369) x10^3/uL MPV 9.9 (9.4-12.3) fL Gran % 63.2 (34.0-71.1) % Immature Gran % (Auto) 0.2 (0.001-0.429) % Nucleat RBC Rel Count 0.0 (0.00-0.2) % Eos # (Auto) 0.23 (0.04-0.36) x10^3/uL Immature Gran # (Auto) 0.01 (0.001-0.031) x10^3u/L Absolute Lymphs (auto) 1.58 (1.18-3.74) x10^3/uL Absolute Monos (auto) 0.42 (0.24-0.86) x10^3/uL Absolute Nucleated RBC 0.00 (0.00-0.012) x10^3u/L Lymphocytes % 25.2 (19.3-51.7) % Monocytes % 6.7 (4.7-12.5) % Eosinophils % 3.7 (0.7-5.8) % Basophils % 1.0 (0.1-1.2) % Absolute Granulocytes 3.97 (1.56-6.13) x10^3/uL Basophils # 0.06 (0.01-0.08) x10^3/uL Sodium 139 (135-145) mmol/L Potassium 3.2 L (3.5-5.1) mmol/L Chloride 105 (98-107) mmol/L Carbon Dioxide 30 (22-30) mmol/L Anion Gap 8.3 (5-15) MEQ/L BUN 11 (7-17) mg/dL Creatinine 0.75 (0.52-1.04) mg/dL Estimated GFR 88.3 ML/MIN Glucose 85 (74-106) mg/dL Calcium 9.6 (8.4-10.2) mg/dL Total Bilirubin 0.60 (0.2-1.3) mg/dL AST 23 (14-36) U/L ALT 16 (0-35) U/L Alkaline Phosphatase 87 (38-126) U/L Troponin I (0.000-0.033) ng/mL Serum Total Protein 6.4 (6.3-8.2) g/dL Albumin 4.1 (3.5-5.0) g/dL Urine Color Yellow (Yellow) Urine Appearance Cloudy A (Clear) Urine pH 6.0 (4.6-8.0) Ur Specific [place] 1.015 (1.005-1.030) Urine Protein Negative (Negative) Urine Glucose (UA) Negative (Negative) mg/dL Urine Ketones Negative (Negative) Urine Blood Negative (Negative) Urine Nitrite Negative (Negative) Urine Bilirubin Negative (Negative) Urine Urobilinogen 0.2 (0.2) mg/dL Ur Leukocyte Esterase Negative (Negative) U Hyaline Cast (Auto) NONE SEEN (0-2) /LPF Urine Microscopic RBC 0-2 (0-5) /HPF Urine Microscopic WBC 0-2 (0-5) /HPF Ur Epithelial Cells None Seen (None Seen) /HPF Urine Bacteria None Seen (None Seen) /HPF Urine Culture Reflexed NO (NO) 09/22/24 09/22/24 Range/Units 15:00 18:40 WBC (3.98-10.04) x10^3/uL RBC (3.93-5.22) x10^6/uL Hgb (11.2-15.7) g/dL Hct (34.1-44.9) % MCV (79.4-94.8) fL MCH (25.6-32.2) pg MCHC (32.2-35.5) g/dL RDW (11.7-14.4) % Plt Count (182-369) x10^3/uL MPV (9.4-12.3) fL Gran % (34.0-71.1) % Immature Gran % (Auto) (0.001-0.429) % Nucleat RBC Rel Count (0.00-0.2) % Eos # (Auto) (0.04-0.36) x10^3/uL Immature Gran # (Auto) (0.001-0.031) x10^3u/L Absolute Lymphs (auto) (1.18-3.74) x10^3/uL Absolute Monos (auto) (0.24-0.86) x10^3/uL Absolute Nucleated RBC (0.00-0.012) x10^3u/L Lymphocytes % (19.3-51.7) % Monocytes % (4.7-12.5) % Eosinophils % (0.7-5.8) % Basophils % (0.1-1.2) % Absolute Granulocytes (1.56-6.13) x10^3/uL Basophils # (0.01-0.08) x10^3/uL Sodium (135-145) mmol/L Potassium (3.5-5.1) mmol/L Chloride (98-107) mmol/L Carbon Dioxide (22-30) mmol/L Anion Gap (5-15) MEQ/L BUN (7-17) mg/dL Creatinine (0.52-1.04) mg/dL Estimated GFR ML/MIN Glucose (74-106) mg/dL Calcium (8.4-10.2) mg/dL Total Bilirubin (0.2-1.3) mg/dL AST (14-36) U/L ALT (0-35) U/L Alkaline Phosphatase (38-126) U/L Troponin I < 0.012 < 0.012 (0.000-0.033) ng/mL Serum Total Protein (6.3-8.2) g/dL Albumin (3.5-5.0) g/dL Urine Color (Yellow) Urine Appearance (Clear) Urine pH (4.6-8.0) Ur Specific [place] (1.005-1.030) Urine Protein (Negative) Urine Glucose (UA) (Negative) mg/dL Urine Ketones (Negative) Urine Blood (Negative) Urine Nitrite (Negative) Urine Bilirubin (Negative) Urine Urobilinogen (0.2) mg/dL Ur Leukocyte Esterase (Negative) U Hyaline Cast (Auto) (0-2) /LPF Urine Microscopic RBC (0-5) /HPF Urine Microscopic WBC (0-5) /HPF Ur Epithelial Cells (None Seen) /HPF Urine Bacteria (None Seen) /HPF Urine Culture Reflexed (NO) Radiology Exams: Radiology Procedures Category Date Time Status ABDOMEN AND PELVIS W/0 CONTRAS [CT] Stat Exams 09/22/24 14:49 Completed Assessment/Plan (1) Intractable abdominal pain Current Visit: Yes Status: Acute Assessment & Plan: Abdominal Pain -Severe pain LLQ and suprapubic area -No fever and wbc is normal -CT unremarkable and UA negative -Symptoms suggest diverticulitis -Will treat with Levaquin and Flagyl Hthinking she may have some diverticulitis missed on CT scan Hypertension -Continue home meds CAD -History of [place] COPD -Continue bronchodilators prn CHF -History of CHF -Seems euvolemic -Continue home meds History of Cancer of Lung -In remission - Code(s): R10.9 - UNSPECIFIED ABDOMINAL PAIN Telemedicine Encounter - Telemedicine Encounter Telemedicine Encounter: "The entirety of this encounter was performed via Telemedicine" This visit was performed using real-time audio and video connection [place] [facility] the assistance of a surrogateat the patients location. Written or verbal consent was obtained from the patient/guardian to perform this visit usingsynchrWorksharetelemedicine technology. Any patient questions regarding the telemedicine interaction were answered.
[2024-09-23 14:17] LABS: Hematocrit 43.8 % (34.1-44.9); Hemoglobin 14.6 g/dL (11.2-15.7); Mean Cell Volume 94.2 fL (79.4-94.8); Mean Corpuscular Hemoglobin 31.4 pg (25.6-32.2); Mean Corpuscular Hgb Concent. 33.3 g/dL (32.2-35.5); Mean Platelet Volume 10.1 fL (9.4-12.3); Platelet Count 306 x10^3/uL (182-369); Red Blood Count 4.65 x10^6/uL (3.93-5.22); Red Cell Distribution Width 12.3 % (11.7-14.4); White Blood Count 6.2 x10^3/uL (3.98-10.04)
[2024-09-23 14:32] LABS: ALBUMIN 4.1 g/dL (3.5-5.0); ANION GAP 8.8 MEQ/L (5-15); BILIRUBIN,TOTAL 0.6 mg/dL (0.2-1.3); Calcium 9.1 mg/dL (8.4-10.2); Creatinine 1 0.94 mg/dL (0.52-1.04); EST GLOMERULAR FILTRATION RATE 67.3 ML/MIN; Total Protein 6.6 g/dL (6.3-8.2)
[2024-09-23] MEDS: Klor Con PO SCH (16:05)
[2024-09-23] MEDS: MAGNESIUM SULF 2 G/50 ML BAG 2 GM/50 ML PIGGYBACK IV ONE (16:16)
--- NOTE | 2024-09-24 05:19 | PCM.NOTE ---
Date and Time: 09/24/24 0514 Subjective Assessment: Ms. Rodarte is a 64 year old female with a pmhx of CHF, CAD, HTN, [place], lung cancer, copd, emphysema, hypothyroidism, and OA who presented to ED 09/02/24 with complaint of a one day history left lower quadrant and suprapubic pain that awoke her from her sleep. CT abdomen and pelvis with no acute findings. CBC unremarkable as well as urinalysis. Patient with noted hypokalemia. Admission for intractable abdominal pain. IP treatment with flagyl and levaquin. Objective Data Vital Signs: Vital Signs - 24 hr Temp Pulse Resp BP Pulse Ox 09/24/24 03:00 97.1 F 82 17 116/64 95 09/23/24 23:25 96.6 F 90 20 119/77 92 L 09/23/24 19:35 66 16 94 L 09/23/24 19:00 97.1 F 86 16 106/67 95 09/23/24 15:00 96.3 F 89 16 154/60 96 09/23/24 11:00 97.0 F 84 16 132/79 96 09/23/24 08:08 81 16 97 09/23/24 07:00 97.8 F 81 16 149/83 93 L Pain Assessment - Last Documented Pain Intensity 8 [facility] Intake and Output: Intake & Output 09/21/24 09/22/24 09/23/24 09/24/24 11:59 11:59 11:59 11:59 Intake Total 360 480 Balance 360 480 Weight 72 kg Lab Results: Lab Results-Last 24 Hours 09/23/24 09/23/24 09/23/24 Range/Units 14:05 14:05 14:39 WBC 6.2 (3.98-10.04) x10^3/uL RBC 4.65 (3.93-5.22) x10^6/uL Hgb 14.6 (11.2-15.7) g/dL Hct 43.8 (34.1-44.9) % MCV 94.2 (79.4-94.8) fL MCH 31.4 (25.6-32.2) pg MCHC 33.3 (32.2-35.5) g/dL RDW 12.3 (11.7-14.4) % Plt Count 306 (182-369) x10^3/uL MPV 10.1 (9.4-12.3) fL Sodium 140 (135-145) mmol/L Potassium 3.0 L* (3.5-5.1) mmol/L Chloride 100 (98-107) mmol/L Carbon Dioxide 34 H (22-30) mmol/L Anion Gap 8.8 (5-15) MEQ/L BUN 11 (7-17) mg/dL Creatinine 0.94 (0.52-1.04) mg/dL Estimated GFR 67.3 ML/MIN Glucose 106 (74-106) mg/dL Calcium 9.1 (8.4-10.2) mg/dL Magnesium 1.4 L (1.6-2.3) mg/dL Total Bilirubin 0.60 (0.2-1.3) mg/dL AST 33 (14-36) U/L ALT 23 (0-35) U/L Alkaline Phosphatase 84 (38-126) U/L Serum Total Protein 6.6 (6.3-8.2) g/dL Albumin 4.1 (3.5-5.0) g/dL 09/24/24 Range/Units 01:00 WBC (3.98-10.04) x10^3/uL RBC (3.93-5.22) x10^6/uL Hgb (11.2-15.7) g/dL Hct (34.1-44.9) % MCV (79.4-94.8) fL MCH (25.6-32.2) pg MCHC (32.2-35.5) g/dL RDW (11.7-14.4) % Plt Count (182-369) x10^3/uL MPV (9.4-12.3) fL Sodium (135-145) mmol/L Potassium 3.8 D (3.5-5.1) mmol/L Chloride (98-107) mmol/L Carbon Dioxide (22-30) mmol/L Anion Gap (5-15) MEQ/L BUN (7-17) mg/dL Creatinine (0.52-1.04) mg/dL Estimated GFR ML/MIN Glucose (74-106) mg/dL Calcium (8.4-10.2) mg/dL Magnesium (1.6-2.3) mg/dL Total Bilirubin (0.2-1.3) mg/dL AST (14-36) U/L ALT (0-35) U/L Alkaline Phosphatase (38-126) U/L Serum Total Protein (6.3-8.2) g/dL Albumin (3.5-5.0) g/dL Radiology Exams: Radiology Procedures Category Date Time Status ABDOMEN AND PELVIS W/0 CONTRAS [CT] Stat Exams 09/22/24 14:49 Completed Assessment/Plan (1) Intractable abdominal pain Current Visit: Yes Status: Acute Assessment & Plan: -Severe pain LLQ and suprapubic area -CBC and vitals reviewed and unremarkable -CT unremarkable and UA negative -Symptoms suggest diverticulitis -Will treat with Levaquin and Flagyl with questionable diverticulitis that may have been missed on CT scan Code(s): R10.9 - UNSPECIFIED ABDOMINAL PAIN (2) Hypomagnesemia Current Visit: Yes Status: Acute Assessment & Plan: -Magnesium level reviewed -replenish per magnesium protocol Code(s): E83.42 - HYPOMAGNESEMIA (3) Hypokalemia Current Visit: Yes Status: Acute Assessment & Plan: -Replenish per potassium protocol -Potassium level reviewed from this morning at 4.1-resolved- monitor closely -tele Code(s): E87.6 - HYPOKALEMIA (4) HTN (hypertension) Current Visit: Yes Status: Acute Assessment & Plan: -continue home medications Code(s): I10 - ESSENTIAL (PRIMARY) HYPERTENSION (5) CAD (coronary artery disease) Current Visit: Yes Status: Acute Assessment & Plan: -History of [place] Code(s): I25.10 - ATHSCL HEART DISEASE OF [place] CORONARY ARTERY W/O ANG PCTRS (6) COPD (chronic obstructive pulmonary disease) Current Visit: Yes Status: Acute Assessment & Plan: -Continue bronchodilators prn -RT to follow -Supplemental oxygen with goal spo2 > 91% (7) CHF (congestive heart failure) Current Visit: Yes Status: Acute Assessment & Plan: -Most recent echo 10/2022: EF of 45% IMPRESSION: 1. BORDERLINE LEFT VENTRICLE SIZE WITH LEFT VENTRICULAR SYSTOLIC DYSFUNCTION. 2. MODERATE MITRAL REGURGITATION. 3. MILD TRICUSPID REGURGITATION. 4. MILD AORTIC INSUFFICIENCY. 5. TECHNICALLY DIFFICULT STUDY BECAUSE OF POOR ACOUSTIC WINDOW -Does not appear to be in exacerbatin -continue home medications Code(s): I50.9 - HEART FAILURE, UNSPECIFIED (8) History of lung cancer Current Visit: Yes Status: Acute Assessment & Plan: -In remission Code(s): Z85.118 - PERSONAL HISTORY OF MALIGNANT NEOPLASM OF [place]ON[place] AND LUNG
[2024-09-24 06:18] LABS: Hematocrit 40.4 % (34.1-44.9); Hemoglobin 13.6 g/dL (11.2-15.7); Mean Cell Volume 92.7 fL (79.4-94.8); Mean Corpuscular Hemoglobin 31.2 pg (25.6-32.2); Mean Corpuscular Hgb Concent. 33.7 g/dL (32.2-35.5); Mean Platelet Volume 9.9 fL (9.4-12.3); Platelet Count 289 x10^3/uL (182-369); Red Blood Count 4.36 x10^6/uL (3.93-5.22); Red Cell Distribution Width 12.7 % (11.7-14.4); White Blood Count 5.5 x10^3/uL (3.98-10.04)
[2024-09-24 06:33] LABS: ALBUMIN 3.8 g/dL (3.5-5.0); ANION GAP 9.4 MEQ/L (5-15); BILIRUBIN,TOTAL 0.4 mg/dL (0.2-1.3); Creatinine 1 0.91 mg/dL (0.52-1.04); Potassium 4.1 mmol/L (3.5-5.1); Total Protein 6.1 g/dL (6.3-8.2)
[2024-09-24 07:00] VITALS: RESP 16; TEMP 96.9
[2024-09-24] MEDS: Levofloxacin 250MG Tablet PO SCH (10:09)
[2024-09-24] MEDS: Levofloxacin 500 MG Tablet PO SCH (11:24)
[2024-09-24 12:03] VITALS: BP 143/74; PULSE 90; O2SAT 94
--- NOTE | 2024-09-24 12:51 | PCM.DS ---
Discharge Summary Date of Admission: 09/22/24 18:29 Date of Discharge: 09/24/24 Admitting Physician: KRISTI VO MD Primary Care Provider: KERWIN KWOK Allergies Allergies amoxicillin trihydrate [From Augmentin] Allergy (Verified 02/07/24 22:13) Nausea and Vomiting Iodinated Contrast Media [Iodinated Contrast Media - IV Dye] Allergy (Verified 02/07/24 22:13) Penicillins Allergy (Verified 02/07/24 22:13) reports she can take some penicillins can not take augmentin Sulfa (Sulfonamide Antibiotics) Allergy (Verified 02/07/24 22:13) Hospital Summary - Hospital Course Hospital Course: Ms. Rodarte is a 64 year old female with a pmhx of CHF, CAD, HTN, NV, lung cancer, copd, emphysema, hypothyroidism, and OA who presented to ED 09/02/24 with complaint of a one day history left lower quadrant and suprapubic pain that awoke her from her sleep. CT abdomen and pelvis with no acute findings. CBC unremarkable as well as urinalysis. Patient with noted hypokalemia. Admission for intractable abdominal pain. IP treatment with flagyl and levaquin. Abdominal pain has improved -patient rating 3/10 on numerical pain scale. No N/V. Labs and vitals stable. Advised close follow up with PCP with labs. Discharge Note New Medications: Levaquin Follow Up: PCP Outpatient testing to order: Latest Assessment & Plan (1) Intractable abdominal pain Current Visit: Yes Status: Acute Assessment & Plan: -Severe pain LLQ and suprapubic area -CBC and vitals reviewed and unremarkable -CT unremarkable and UA negative -Symptoms suggest diverticulitis -Will treat with Levaquin and Flagyl with questionable diverticulitis that may have been missed on CT scan Code(s): R10.9 - UNSPECIFIED ABDOMINAL PAIN (2) Hypomagnesemia Current Visit: Yes Status: Acute Assessment & Plan: -Magnesium level reviewed -replenish per magnesium protocol Code(s): E83.42 - HYPOMAGNESEMIA (3) Hypokalemia Current Visit: Yes Status: Acute Assessment & Plan: -Replenish per potassium protocol -Potassium level reviewed from this morning at 4.1-resolved- monitor closely -tele Code(s): E87.6 - HYPOKALEMIA (4) HTN (hypertension) Current Visit: Yes Status: Acute Assessment & Plan: -continue home medications Code(s): I10 - ESSENTIAL (PRIMARY) HYPERTENSION (5) CAD (coronary artery disease) Current Visit: Yes Status: Acute Assessment & Plan: -History of [place] Code(s): I25.10 - ATHSCL HEART DISEASE OF [place] CORONARY ARTERY W/O ANG PCTRS (6) COPD (chronic obstructive pulmonary disease) Current Visit: Yes Status: Acute Assessment & Plan: -Continue bronchodilators prn -RT to follow -Supplemental oxygen with goal spo2 > 91% (7) CHF (congestive heart failure) Current Visit: Yes Status: Acute Assessment & Plan: -Most recent echo 10/2022: EF of 45% IMPRESSION: 1. BORDERLINE LEFT VENTRICLE SIZE WITH LEFT VENTRICULAR SYSTOLIC DYSFUNCTION. 2. MODERATE MITRAL REGURGITATION. 3. MILD TRICUSPID REGURGITATION. 4. MILD AORTIC INSUFFICIENCY. 5. TECHNICALLY DIFFICULT STUDY BECAUSE OF POOR ACOUSTIC WINDOW -Does not appear to be in exacerbatin -continue home medications Code(s): I50.9 - HEART FAILURE, UNSPECIFIED (8) History of lung cancer Current Visit: Yes Status: Acute Assessment & Plan: -In remission I spent 35 minutes [id number] with the patient on the day of discharge per forming discharge exam, discussing hospital stay and discharge instructions with patient and caregivers, preparation of discharge records, prescriptions & referral forms and addressing any questions/concerns the patient had as documented above.Will discharge patient home with levaquin and follow up with GI. - Vitals & Intake/Output Vital Signs: Vital Signs Temperature 96.9 F 09/24/24 11:00 Pulse Rate 90 09/24/24 11:00 Respiratory Rate 16 09/24/24 11:00 Blood Pressure 143/74 09/24/24 11:00 O2 Sat by Pulse Oximetry 94 L 09/24/24 11:00 Intake & Output: Intake & Output 09/22/24 09/23/24 09/24/24 09/25/24 11:59 11:59 11:59 11:59 Intake Total 360 600 Balance 360 600 Weight 72 kg 73.2 kg - Lab Result Diagrams: 09/24/24 06:05 09/24/24 06:05 Lab Results-Last 24 Hrs: Lab Results-Last 24 Hours 09/23/24 09/23/24 09/23/24 Range/Units 14:05 14:05 14:39 WBC 6.2 (3.98-10.04) x10^3/uL RBC 4.65 (3.93-5.22) x10^6/uL Hgb 14.6 (11.2-15.7) g/dL Hct 43.8 (34.1-44.9) % MCV 94.2 (79.4-94.8) fL MCH 31.4 (25.6-32.2) pg MCHC 33.3 (32.2-35.5) g/dL RDW 12.3 (11.7-14.4) % Plt Count 306 (182-369) x10^3/uL MPV 10.1 (9.4-12.3) fL Sodium 140 (135-145) mmol/L Potassium 3.0 L* (3.5-5.1) mmol/L Chloride 100 (98-107) mmol/L Carbon Dioxide 34 H (22-30) mmol/L Anion Gap 8.8 (5-15) MEQ/L BUN 11 (7-17) mg/dL Creatinine 0.94 (0.52-1.04) mg/dL Estimated GFR 67.3 ML/MIN Glucose 106 (74-106) mg/dL Calcium 9.1 (8.4-10.2) mg/dL Magnesium 1.4 L (1.6-2.3) mg/dL Total Bilirubin 0.60 (0.2-1.3) mg/dL AST 33 (14-36) U/L ALT 23 (0-35) U/L Alkaline Phosphatase 84 (38-126) U/L Serum Total Protein 6.6 (6.3-8.2) g/dL Albumin 4.1 (3.5-5.0) g/dL 09/24/24 09/24/24 09/24/24 Range/Units 01:00 05:12 06:05 WBC 5.5 (3.98-10.04) x10^3/uL RBC 4.36 (3.93-5.22) x10^6/uL Hgb 13.6 (11.2-15.7) g/dL Hct 40.4 (34.1-44.9) % MCV 92.7 (79.4-94.8) fL MCH 31.2 (25.6-32.2) pg MCHC 33.7 (32.2-35.5) g/dL RDW 12.7 (11.7-14.4) % Plt Count 289 (182-369) x10^3/uL MPV 9.9 (9.4-12.3) fL Sodium (135-145) mmol/L Potassium 3.8 D (3.5-5.1) mmol/L Chloride (98-107) mmol/L Carbon Dioxide (22-30) mmol/L Anion Gap (5-15) MEQ/L BUN (7-17) mg/dL Creatinine (0.52-1.04) mg/dL Estimated GFR ML/MIN Glucose (74-106) mg/dL Calcium (8.4-10.2) mg/dL Magnesium 2.1 (1.6-2.3) mg/dL Total Bilirubin (0.2-1.3) mg/dL AST (14-36) U/L ALT (0-35) U/L Alkaline Phosphatase (38-126) U/L Serum Total Protein (6.3-8.2) g/dL Albumin (3.5-5.0) g/dL 09/24/24 Range/Units 06:05 WBC (3.98-10.04) x10^3/uL RBC (3.93-5.22) x10^6/uL Hgb (11.2-15.7) g/dL Hct (34.1-44.9) % MCV (79.4-94.8) fL MCH (25.6-32.2) pg MCHC (32.2-35.5) g/dL RDW (11.7-14.4) % Plt Count (182-369) x10^3/uL MPV (9.4-12.3) fL Sodium 139 (135-145) mmol/L Potassium 4.1 (3.5-5.1) mmol/L Chloride 104 (98-107) mmol/L Carbon Dioxide 30 (22-30) mmol/L Anion Gap 9.4 (5-15) MEQ/L BUN 21 H (7-17) mg/dL Creatinine 0.91 (0.52-1.04) mg/dL Estimated GFR 70.0 ML/MIN Glucose 117 H (74-106) mg/dL Calcium 9.0 (8.4-10.2) mg/dL Magnesium (1.6-2.3) mg/dL Total Bilirubin 0.40 (0.2-1.3) mg/dL AST 27 (14-36) U/L ALT 20 (0-35) U/L Alkaline Phosphatase 84 (38-126) U/L Serum Total Protein 6.1 L (6.3-8.2) g/dL Albumin 3.8 (3.5-5.0) g/dL - Radiology Exams Ordered Rad Exams-Entire Visit: Radiology Procedures Category Date Time Status ABDOMEN AND PELVIS W/0 CONTRAS [CT] Stat Exams 09/22/24 14:49 Completed - Procedures and Test Procedures and Tests throughout Hospitalization: Therapy Orders & Screens 09/22/24 21:13 Respiratory Therapy Assessment DAILY Comment: Diagnosis: Intractable abdominal pain Discharge Exam General Appearance: no apparent distress Neurologic Exam: alert, oriented x 3, cooperative Eye Exam: PERRL Ears, Nose, Throat Exam: normal ENT inspection Neck Exam: normal inspection Respiratory Exam: normal breath sounds, lungs clear Cardiovascular Exam: regular rate/rhythm, normal heart sounds Gastrointestinal/Abdomen Exam: soft, normal bowel sounds, tenderness (LLQ) Pelvic Exam: deferred Rectal Exam: deferred Back Exam: normal inspection Extremity Exam: normal inspection Skin Exam: normal color Final Diagnosis/Problem List - Final Discharge Diagnosis/Problem (1) Intractable abdominal pain Current Visit: Yes Status: Resolved Code(s): R10.9 - UNSPECIFIED ABDOMINAL PAIN (2) Hypomagnesemia Current Visit: Yes Status: Resolved Code(s): E83.42 - HYPOMAGNESEMIA (3) Hypokalemia Current Visit: Yes Status: Resolved Code(s): E87.6 - HYPOKALEMIA (4) HTN (hypertension) Current Visit: Yes Status: Chronic Code(s): I10 - ESSENTIAL (PRIMARY) HYPERTENSION (5) CAD (coronary artery disease) Current Visit: Yes Status: Chronic Code(s): I25.10 - ATHSCL HEART DISEASE OF [place] CORONARY ARTERY W/O ANG PCTRS (6) COPD (chronic obstructive pulmonary disease) Current Visit: Yes Status: Chronic (7) CHF (congestive heart failure) Current Visit: Yes Status: Chronic Code(s): I50.9 - HEART FAILURE, UNSPECIFIED (8) History of lung cancer Current Visit: Yes Status: Chronic Code(s): Z85.118 - PERSONAL HISTORY OF MALIGNANT NEOPLASM OF BRONCHUS AND LUNG - Discharge Disposition: Home, Self-Care Condition: Stable Prescriptions: New levoFLOXacin [Levofloxacin] 750 mg PO DAILY 7 Days #7 tablet Continue Cyclobenzaprine HCl 10 mg [Cyclobenzaprine 10 MG] 0.5 tab PO TID PRN PRN Reason: Muscle Spasms Amitriptyline HCl 50 mg PO DAILY Furosemide 20 mg [Lasix 20 mg] 20 mg PO DAILY Tramadol HCl 50 mg [Ultram 50 mg] 50 mg PO Q4-6HPRN PRN PRN Reason: Pain Omeprazole 40 mg PO DAILY Famotidine 20 mg [Pepcid 20 MG] 20 mg PO DAILY Albuterol 8 gm Mdi Hfa [Ventolin Hfa MDI] 2 puffs IH BID PRN Albuterol 2.5 mg/0.5 ml [PROVENTIL Solution 2.5 MG/0.5 ML] 2.5 mg IH Q4-6HPRN PRN PRN Reason: Shortness Of Breath/Wheezing Losartan Potassium 50 mg [Cozaar 50 MG] 50 mg PO DAILY Evolocumab [Repatha Sureclick] 140 mg SQ DIRECTIONS UNKNOWN Follow up with: KERWIN KWOK [Primary Care Provider] - 09/29/24 1:15 pm
[2024-09-24] MEDS: ULTRAM 50 MG PO PRN (13:15)
== END 2024-09-24 13:38 | disposition home or self-care (01) ==
LOC: ED 13:32 → MED SURG 18:29
PROVIDERS: ADMIT Internal Medicine; ATTEND Internal Medicine
DX: R10.9 Unspecified abdominal pain (principal); E83.42 Hypomagnesemia; E87.6 Hypokalemia; I25.10 Atherosclerotic heart disease of native coronary artery without angina pectoris; J44.9 Chronic obstructive pulmonary disease, unspecified; I11.0 Hypertensive heart disease with heart failure; I50.9 Heart failure, unspecified; Z85.118 Personal history of other malignant neoplasm of bronchus and lung; Z79.899 Other long term (current) drug therapy
CPT/HCPCS: 36415; 74176; 80053; 81001; 83735; 84132; 84484; 85025; 85027; 94760; 96374; 96375; 96376; 99285; G0378; Q3014; J2270; J2405; A9270-GY; J3475